=== PATIENT | female | born 1955 | race Caucasian/White ===

== ENCOUNTER 2018-04-24 22:30 | Inpatient (IN) ==
[2018-04-25 01:24] LABS: URINE SOURCE CATH
[2018-04-25 01:28] LABS: BILIRUBIN URINE NEGATIVE (NEGATIVE); BLOOD URINE SMALL (NEGATIVE); COLOR YELLOW; GLUCOSE URINE NEGATIVE (NEGATIVE); KETONE URINE 10 mg/dL (NEGATIVE); LEUKOCYTES URINE NEGATIVE (NEGATIVE); NITRITE URINE NEGATIVE (NEGATIVE); PH URINE 6.5; PROTEIN URINE 300 mg/dL (NEGATIVE); TURBIDITY URINE CLEAR (CLEAR); UR EPITHELIAL CELLS <10 /HPF (<10); URINE BACTERIA NEGATIVE /HPF; URINE RBC <10 /HPF (<10); URINE WBC <10 /HPF (<10); UROBILINOGEN URINE NORMAL (NORMAL)
[2018-04-25] MEDS ORDERED: ZOFRAN IV ONE (01:35)
[2018-04-25] MEDS ORDERED: EPINEPHRINE SYRINGE IV ONE (01:40)
[2018-04-25] MEDS ORDERED: AMIDATE ONE (01:49)
[2018-04-25] MEDS ORDERED: QUELICIN ONE (01:49)
[2018-04-25] MEDS ORDERED: NORCURON ONE (01:54)
[2018-04-25] MEDS ORDERED: AMIDATE IV ONE (02:04)
[2018-04-25] MEDS ORDERED: NORCURON IV ONE (02:04)
[2018-04-25] MEDS ORDERED: DIPRIVAN 1% 1,000 MG/100 ML BOTTLE ONE (02:08)
[2018-04-25] MEDS: DIPRIVAN 1% 1,000 MG/100 ML BOTTLE IV SCH ×9 (02:11→21:56)
[2018-04-25 02:12] LABS: BASO# 0.29 X1000 (0.0-0.2); BASO% 1.6 % (0.0-0.8); EOS# 0.15 X1000 (0.0-0.7); EOS% 0.8 % (0.0-10.0); HEMATOCRIT 36.1 % (37.0-47.0); HEMOGLOBIN 11.3 g/dL (12.0-16.0); IMM GRAN# 0.57 X1000 (0.0-0.04); IMM GRAN% 3.1 % (0.0-0.5); LYMPH# 7.36 X1000 (1.2-3.4); LYMPH% 40.6 % (20.5-51.1); MCH 29.4 PG (27-31); MCHC 31.3 g/dL (33-37); MONO# 0.81 X1000 (0.11-0.59); MONO% 4.5 % (1.7-9.3); MPV 10.5 FL (7.4-10.4); NEUT# 8.95 X1000 (1.4-6.5); NEUT% 49.4 % (42.2-75.2); PLT 218 X1000 (130-400); RBC 3.84 XMIL (4.2-5.4); RDW 13.4 % (11.5-14.5); WBC 18.13 X1000 (4.8-10.8)
[2018-04-25 02:28] LABS: ALB/GLOB RATIO 0.8; CALCIUM 7.9 mg/dL (8.8-10.2); CREATININE 1.1 mg/dL (0.5-0.9); POTASSIUM 4.6 mmol/L (3.5-5.1); TOTAL BILIRUBIN 0.74 mg/dL (0.20-1.00)
[2018-04-25] MEDS ORDERED: ZOSYN 3.375 GM in NS 50 ML IV ONE (03:01)
--- NOTE | 2018-04-25 04:27 | PROVIDER DOCUMENTATION ---
This chart was entered by Teresa Ariza Scribe, acting as scribe for Murali Miller MD. HPI-General Adult - General Chief Complaint: For Procedure Stated Complaint: Transfer for CT Time Seen by Provider: 04/24/18 22:52 Source: patient Allergies/Adverse Reactions: Patient Allergies Allergy/AdvReac Type Severity Reaction Status Date / Time No Known Allergies Allergy Verified 04/24/18 23:00 - History of Present Illness -Gen Adult Nature of Presenting Problems: Pt presnts to ED VIA EMS transfer from [facility]. PT was pt in ER there, but they could not complete CT because of her weight. She originally came to the ED because of AMS. Location of Pain/Injury: reports: generalized Timing: reports: still present Context/Activities at Onset: reports: none Modifying Factors: improves with: nothing Associated Symptoms: reports: denies symptoms Review of Systems - Adult - REVIEW OF SYSTEMS - ADULT ROS:: ROS per family Constitutional: denies: chills, fever Eyes: reports: no symptoms reported Ears, Nose, Mouth & Throat: reports: no symptoms reported Cardiovascular: reports: no symptoms reported Respiratory: reports: no symptoms reported Gastrointestinal: reports: no symptoms reported Genitourinary: reports: no symptoms reported Musculoskeletal: reports: back pain Integumentary: reports: no symptoms reported Neurological: reports: no symptoms reported. denies: dizziness/vertigo, headache/migraines Psychiatric: reports: other (AMS) Endocrine: reports: no symptoms reported Hematologic/Lymphatic: reports: no symptoms reported Allergic/Immunologic: reports: no symptoms reported All Other Systems: Reviewed and Negative Past History - Adult - PAST MEDICAL HISTORY-ADULT Review of Records: reports: Old Records Reviewed, Nursing Assessment Review, Medications Reviewed, Social history reviewed & non-contributory. - SOCIAL HISTORY Smoking: denies, non-smoker Substance Use: none/never Alcohol Use Frequency: never Living Situation: family Physical Exam-General - CONSTITUTIONAL General Appearance: no apparent distress, obese (morbidly obese), other (Pt was not very vocal during exam, stated that she had to use the bathroom and asked about ice, but otherwise was not inclusive in the conversation in the room at time of exam.) - EYES Eyes: PERRL/EOMI - HEAD, EARS, NOSE, MOUTH & THROAT HENMT: TMs normal, other (Lips very dry and peeling) - NECK Neck: non-tender, full range of motion, supple - RESPIRATORY Respiratory: lungs clear, normal breath sounds - CARDIOVASCULAR Cardiovascular: regular rate, rhythm - GASTROINTESTINAL (ABDOMEN) Abdominal Exam: normal bowel sounds, non tender, soft - LYMPHATIC Lymphatic: no adenopathy - SKIN Integumentary: normal color, warm/dry, other (draining wound in bellybutton) - NEUROLOGIC Neurologic: other (confused) - PSYCHIATRIC Psych/Mental Status: other (pt is confused during exam) Progress - PLAN OF CARE/RESULTS Progress/Plan/Lab Results: Vital Signs - 8 hr 04/24/18 22:40 04/24/18 22:45 04/24/18 22:47 Temperature 97.7 F Pulse Rate 90 Respiratory Rate 16 Blood Pressure 199/152 199/152 O2 Sat by Pulse Oximetry 100 100 100 04/24/18 22:50 04/24/18 23:00 04/24/18 23:10 Temperature Pulse Rate Respiratory Rate Blood Pressure O2 Sat by Pulse Oximetry 100 100 100 04/24/18 23:20 04/24/18 23:30 04/24/18 23:40 Temperature Pulse Rate Respiratory Rate Blood Pressure O2 Sat by Pulse Oximetry 100 100 99 04/25/18 00:16 04/25/18 00:17 Temperature Pulse Rate Respiratory Rate Blood Pressure 189/118 O2 Sat by Pulse Oximetry 100 100 Orders Category Date Time Status Hernandez Cath Insertion ORDERED Care 04/24/18 23:[address] HEAD W/O CONTRAST [CT] Stat Exams 04/24/18 23:20 Taken cxr [CHEST-1 VIEW] [RAD] Stat Exams 04/24/18 23:40 Taken BLOOD CULTURE [BLDCUL] Stat Lab 04/24/18 23:38 Ordered CBC WITH ELECTRONIC DIFF [HEME] Stat Lab 04/25/18 00:18 Ordered CMP [COMPREHENSIVE METABOLIC PANEL] [CHEM] Stat Lab 04/25/18 00:18 Ordered FREE T4 Stat Lab 04/25/18 00:18 Ordered LACTATE, PLASMA [CHEM] Stat Lab 04/25/18 00:18 Ordered LIPASE [CHEM] Stat Lab 04/25/18 00:18 Ordered TROPONIN T Stat Lab 04/25/18 00:18 Ordered TSH Stat Lab 04/24/18 23:38 Ordered UA [URINALYSIS] [URINALYSIS] Stat Lab 04/24/18 23:39 Uncollected URINE CULTURE [RM] Stat Lab 04/24/18 23:41 Uncollected Result Diagrams: 04/25/18 02:09 04/25/18 02:10 Departure - Departure Date of Disposition Decision: 04/25/18 Time of Disposition Decision: 04:26 DIAGNOSIS: Altered mental status Qualifiers: Altered mental status type: unspecified Qualified Code(s): R41.82 - Altered mental status, unspecified Disposition: ADMITTED INPATIENT 09 Certified Medical Emergency: Emergent Condition: Critical - Critical Care Note This patient required my direct & personal management of CC.: Yes Attestation - Physician/ LESLEY Attestation Patient care was provided by Advanced Practice Provider:: No The physician spent face to face time with patient:: Yes Advanced Practice Provider documentation review:: Supervising physician onsite and consulted in the evaluation and care of this patient. The physician did have a face to face encounter with the patient. This chart was documented by the indicated scribe, (Teresa Ariza, Scribe) and accurately reflects the services I performed and decisions made by me, Murali Miller MD, as attested by the provider's signature.
[2018-04-25 04:31] LABS: ALLEN TEST YES; BE -0.6 mmoll (-3.0-3.0); BLOOD TYPE ARTERIAL; HCO3-(ACT) 24.5 mmoll (20.0-26.0); METHB 1.9 % (0.0-1.5); O2(CT) 13.3 mL/dL (15.0-23.0); O2HB 95.9 % (95.0-99.0); PCO2(98.6) 44 mmHg (35-45); PO2(98.6) 301 mmHg (60-100); SAMPLE BLOOD; SAO2 100.2 % (95.0-100.0); SRATE 16 BPM; THB 9.3 g/dL (11.5-17.4); TVOL 500 mL; pH(98.6) 7.36 (7.35-7.45)
[2018-04-25 04:51] LABS: MODALITY VENTILATOR
[2018-04-25] MEDS ORDERED: LEVOPHED 8 MG in D5 1/2 NS 250 ML IV SCH (05:30)
--- NOTE | 2018-04-25 05:49 | Diag Imaging Result Doc PS360 ---
CT HEAD W/O CONTRAST - 04/24/2018 INDICATION: ams COMPARISON: None FINDINGS: There are areas of old encephalomalacia at the right parietal-occipital lobes. There is also some hypodensity in the posterior left occipital lobe. There is an old lacunar in the nitin. There is mild diffuse atrophy. No intracranial mass or hemorrhage. The skull is intact. The sinuses are clear. IMPRESSION: No acute process. This exam was performed using automated exposure control, adjustment of mA or kV according to patient size, and/or use of iterative reconstruction technique Electronically signed by Inderjit Villafana 04/25/2018 5:46 AM
[2018-04-25] MEDS ORDERED: TYLENOL PR PRN (06:17)
[2018-04-25] MEDS ORDERED: VANCOMYCIN IV PER PHARMACY MISC SCH (06:30)
[2018-04-25] MEDS ORDERED: NS 1,000 ML IV SCH (06:30)
--- NOTE | 2018-04-25 06:59 | Diag Imaging Result Doc PS360 ---
EXAM: CHEST-PORTABLE 04/25/2018 HISTORY: tube placement TECHNIQUE: AP portable at 0 to 34 hours COMMENT: There is an endotracheal tube with its tip in the thoracic inlet. There is perihilar opacity bilaterally which has worsened since 04/25/2018. IMPRESSION: Worsening pulmonary edema. Electronically signed by Suresh Larkin 04/25/2018 6:57 AM
[2018-04-25] MEDS ORDERED: EPINEPHRINE SYRINGE ONE (07:00)
[2018-04-25] MEDS ORDERED: CALCIUM CHLORIDE ONE (07:00)
[2018-04-25] MEDS: PROTONIX IV SCH ×3 (07:02→17:32)
[2018-04-25] MEDS: SODIUM CHLORIDE 0.9% INJ SCH (07:02)
--- NOTE | 2018-04-25 07:10 | Diag Imaging Result Doc PS360 ---
EXAM: CHEST-1 VIEW 04/24/2018 HISTORY: ams TECHNIQUE: AP portable at 0009 on 04/25/2018. COMMENT: There is cardiomegaly and increased pulmonary vascularity. There are no previous studies available for comparison. There is interstitial pulmonary edema. The left base is not entirely included on the image. IMPRESSION: Pulmonary edema. Electronically signed by Suresh Larkin 04/25/2018 7:08 AM
--- NOTE | 2018-04-25 07:27 | EKG Report ---
Test Performed on : 04/25/2018 05:11:27 AM Test Reason : Cardiopulmonary Arrest Blood Pressure : / mmHG Vent. Rate : 084 BPM Atrial Rate : 084 BPM P-R Int : 142 ms QRS Dur : 080 ms QT Int : 502 ms P-R-T Axes : 063 062 032 degrees QTc Int : 593 ms Normal sinus rhythm. Low voltage QRS Possible Inferior infarct , age undetermined Possible Anterolateral infarct , age undetermined Prolonged QT Abnormal ECG No previous ECGs available Confirmed by Hernandez Ochoa MD ([id number]) on 04/25/2018 9:22:40 AM
--- NOTE | 2018-04-25 07:27 | EKG Report ---
Test Performed on : 04/25/2018 07:19:01 AM Test Reason : Cardiac Arrest Blood Pressure : / mmHG Vent. Rate : 087 BPM Atrial Rate : 087 BPM P-R Int : 146 ms QRS Dur : 080 ms QT Int : 496 ms P-R-T Axes : 068 069 055 degrees QTc Int : 596 ms Normal sinus rhythm. Cannot rule out Inferior infarct (cited on or before 25-APR-2018) Cannot rule out Anterior infarct (cited on or before 25-APR-2018) Prolonged QT Abnormal ECG When compared with ECG of 25-APR-2018 05:11, (Unconfirmed) No significant change was found Confirmed by Gabriela BURNS, Hernandez Simmons ([id number]) on 04/25/2018 9:22:50 AM
[2018-04-25 07:59] LABS: INR 1.37; PROTIME 17.9 Seconds (11.0-16.0)
[2018-04-25 08:00] LABS: PTT 38.5 Seconds (22.3-41.8)
[2018-04-25] MEDS ORDERED: NS 250 ML ONE (08:13)
[2018-04-25] MEDS ORDERED: LASIX IV ONE (08:25)
[2018-04-25 08:29] LABS: CALCIUM 7.8 mg/dL (8.8-10.2); CREATININE 1.2 mg/dL (0.5-0.9); MAGNESIUM 1.2 mg/dL (1.5-2.7); POTASSIUM 4.2 mmol/L (3.5-5.1)
[2018-04-25] MEDS ORDERED: VANCOMYCIN 2.5 GM in NS 500 ML IV ONE (09:00)
[2018-04-25] MEDS ORDERED: MAGNESIUM SULFATE 2 GM/S.W.I. 2 GM/50 ML IVPB IV ONE (09:30)
--- NOTE | 2018-04-25 10:18 | CARDIOLOGY CONSULTATION ---
DATE: 04/25/2018 CHIEF COMPLAINT ON PRESENTATION: She apparently presented to [facility] with altered mental status and was transferred over to [facility] for evaluation of altered mental status. HISTORY OF PRESENT ILLNESS: Ms. Salomon is a 62-year-old female. She has a history, by chart review, of hypertension and hypothyroidism. She is a morbidly obese female who was bed-bound. She is not able to provide any history. She was apparently intubated last night for PEA arrest. I do not have any data on this PEA arrest. I do not have any notes from the ER to review regarding this arrest. The patient was apparently a recent admit to [facility], who was treated for some abdominal wall cellulitis. She has large pannus on the right side for which she apparently was treated with IV and oral antibiotics. She was complaining of headache at home per family and they brought her into the ER for further evaluation. During the transfer to the ER and [facility], she became very altered. No other history is available. PAST MEDICAL HISTORY: Again per chart review, this appears to be consistent with: 1. Hypertension. 2. Severe, profound morbid obesity in which the patient is bed-bound. SOCIAL HISTORY: She is a bed-bound white female. She lives at home with family. REVIEW OF SYSTEMS: Unable to be obtained secondary to the patient being intubated. FAMILY HISTORY: Unable to be obtained secondary to the patient being intubated. PHYSICAL EXAMINATION: Vital Signs: She is afebrile here. Her heart rates appear to be in predominantly the 80s. Her blood pressure is 108/70. On presentation to our hospital, her blood pressure was 199/152. General: She is in no acute distress. She is sedated on the ventilator. She is morbidly obese. HEENT: Oropharynx is moist. She has poor dentition. Eye examination shows pink conjunctivae and white sclerae. Neck: Examination shows no obvious thyromegaly or thyroid tenderness. Cardiovascular: She sounds to be in a regular rate and rhythm. She has very distant heart sounds. She has mildly cool distal extremities to palpation. She has no obvious edema, but she has significant obesity in those limbs. Chest: Mechanical breath sounds bilaterally. No increased work of breathing. Abdomen: No obvious organomegaly, but significantly limited by the patient's body habitus. She does have some edematous areas in her pannus on the right, but no obvious erythema. Skin: Again, edematous, indurated pannus on the right with some mild abrasions, but no obvious erythema and no obvious draining lesions. Neurologic and Psychiatric: Exams unable to be performed secondary to the patient's current intubated status. PERTINENT DATA: EKG reviewed by me on 04/25/2018 at 7:19 showed sinus rhythm. No clear evidence of ischemic changes or injury pattern. EKG on 04/25/2018 at 5:11 showed sinus rhythm. No acute ischemic changes or evidence of injury pattern. Chest x-ray shows suggestion of pulmonary edema. Head CT shows no acute process. There is an old lacunar infarct in the nitin. Hypodensity in the posterior left occipital lobe with old encephalomalacia at the right parietal occipital lobe. Lab data shows white count 18, hematocrit 36, platelet count of 218,000. INR is 1.37. ABG shows a pH of 7.36, pCO2 of 44, PO2 of 301. Lactate was 1.9; that is on an FiO2 of 80%. Sodium is 139, potassium 4.2, BUN 8, creatinine 1.2. Mag level is 1.2. ProBNP is 32,000. Albumin level is 3. Lactate on this study was 2.6. Protein level 300. ASSESSMENT: Ms. Salomon is a 62-year-old female who presented with altered mental status. She subsequently had what sounds like a pulseless electrical activity event, but I do not have any telemetry data or any code data to support this. She was intubated in the emergency room. PLAN: At this point, we will check an echo. Further recommendations to come after the results of the echo are reviewed. Her white count is certainly elevated and with the recent hospitalization, there must be concern for occult infection. Her proBNP is significantly elevated. Her enzymes do not appear to be elevated. I do not think that this is acute coronary syndrome based on the history. I will replete the magnesium, if this has not been done, as it is significantly low. I agree with the Lasix dosing as she is currently on. We will follow up with an echocardiogram. cc: Bo Rose MD
[2018-04-25] MEDS: ZOSYN 3.375 GM in NS 50 ML IV SCH ×2 (11:07→17:28)
--- NOTE | 2018-04-25 11:15 | HISTORY AND PHYSICAL ---
PRIMARY CARE PHYSICIAN: JOEY Franklin, in [place], [place] CHIEF COMPLAINT: Altered mental status. HISTORY OF PRESENT ILLNESS: Ms. Salomon is a 62-year-old female who presented to our ER as an ER to ER transfer from [facility]. From what the patient's daughter and explained is that the patient recently was discharged from [facility] in [place], [place], on 04/21/2018. They stated that she was admitted there for treatment of cellulitis of her right abdomen. From her recent medication reconciliation, it looks as though she was discharged with antibiotics of clindamycin. The patient's daughter states that yesterday morning on 04/24/2018 that the patient was noted to be of normal mentation, though she did begin to have increasing confusion, difficulty with speech and articulating her words and some right- sided weakness and drawing of her right hand throughout the day. Though they stated the patient did not complain of shortness of breath. They did state at times it did look as though she was having difficulty breathing. This was her chief complaint that was documented in the ER at [facility]. Though they did report that she complained of symptoms of a headache and nausea. She did have a brief period where she stated that she did have some chest pain, though from what I understand, this had resolved prior to her arrival to the ER at [facility]. They had reported that she had been having frequent diarrhea as well, though she denied any abdominal pain. They had reported that she has had some low back pain. They denied her having any known fever, body aches or chills. They denied her having any known cough. There was no known vomiting prior to arrival to the ER. They state that she does have chronic swelling in her bilateral lower extremities and that she takes Lasix p.r.n. for this. The daughter also did report that recently the patient's grandson had been diagnosed with the flu and that he does have close contact with the patient, and due to this, they had written her a prescription for Tamiflu on 04/24/2018. According to the ER note, the ER physician at [facility] did contact our physician in the ER for transfer due to the patient's weight. A CT scan of the head was unable to be performed at their facility, and she was transferred here for this to be completed. Though while in the ER, the patient's daughter states that the patient did begin to vomit. They did call for the nurse, though shortly after this, she said the patient sat up in the bed and did grab at her chest and then became unresponsive. They did call for the nurses who went into the room to check the patient and found the patient in cardiopulmonary arrest. They did immediately begin chest compressions. ACLS protocol was initiated. She was given a total of 3 doses of epinephrine IV. It was reported that she was in PEA on the monitor. The patient did have return of ROSC, and she was intubated by the ER physician. The patient did have some leukocytosis noted with a white blood cell count of 18,930. Chest x-ray did look as though she could have some possible pulmonary edema as well as she may likely have some aspiration pneumonia. The patient will be placed inpatient for admission to the ICU. Also, I would like to note that the daughter did report that she has had a recent diagnosis of sarcoidosis. They also noted that the patient is bedbound and secondary to this has not seen a pulmonary or pulmonary specialist in a few years. [facility] does come out to care for the patient frequently. REVIEW OF SYSTEMS: Unfortunately, review of systems was unable to be completed with the patient due to her current condition and mentation. Please see above HPI for reported symptoms by family. PAST MEDICAL HISTORY: 1. Congestive heart failure. 2. Hypertension. 3. Hyperlipidemia. 4. Diabetes mellitus type 2. 5. Gastroesophageal reflux disease. 6. Chronic kidney disease. 7. Hypothyroidism. 8. Recent diagnosis of sarcoidosis. 9. History of uterine cancer. 10.Iron deficiency anemia. 11.Kidney stones. 12.Questionable history of colitis/diverticulitis. 13.Frequent urinary tract infections. 14.Asthma. 15.COPD. 16.Reported history of an IVC filter placement prior to having bariatric surgery for which the patient ultimately decided not to have. The family reports this filter was placed at a hospital in [place], [place] many years ago. 17.Recent diagnosis and treatment of cellulitis of her right abdomen in [facility] in [place], [place]. PAST SURGICAL HISTORY: 1. Hysterectomy. 2. section. 3. Cholecystectomy. 4. IVC filter placement. 5. Cataract surgery. 6. Lung biopsy. SOCIAL HISTORY: There is no known history of tobacco, alcohol or illicit drug use. The patient's daughter states that she is bed bound. She does have [facility] that comes out to her house to care for her. FAMILY HISTORY: Positive for her father having a history of heart disease, CABG, and aortic aneurysm. Her mother had a history of aortic aneurysm and stroke. Her brother had a history of having a CABG in his 30s. She does have a niece who was diagnosed with colon cancer in her 30s. ALLERGIES: The patient has reported allergies to Keflex and Lyrica. HOME MEDICATIONS: 1. Coreg 25 mg p.o. b.i.d. 2. Cetirizine 10 mg p.o. daily. 3. Celexa 40 mg p.o. nightly at bedtime. 4. Clindamycin 150 mg capsule b.i.d. 5. Vitamin D2 one capsule p.o. as directed once a week. 6. Ferrous sulfate 325 mg p.o. b.i.d. 7. Fluconazole 100 mg tablet p.o. daily. 8. Levothyroxine 175 mcg tablet p.o. q.a.m. 9. Lorazepam 0.5 mg p.o. t.i.d. 10.Singulair 10 mg tablet p.o. nightly at bedtime. 11.Zofran 4 mg tablet p.o. q.6 hours p.r.n. for nausea. 12.Tamiflu 75 mg p.o. b.i.d. 13.Protonix 40 mg p.o. daily. DIAGNOSTIC DATA: White blood cell count is 18,130, hemoglobin 11.3, hematocrit 36.1, platelet count is 218. PT is 17.9. INR is 1.37. PTT is 38.5. Sodium is 137, potassium 4.6, chloride 102, serum bicarb is 22, BUN is 2, creatinine 1.1, GFR is 51, glucose 80, though recheck fingerstick glucose is 113. Calcium is 7.9. Liver function tests were within normal limits except for AST slightly elevated at 45 and alkaline phosphatase of 135. Troponin is 0.024. Lipase 35. Urinalysis was obtained via catheter and was positive for protein, ketones and blood though was negative for nitrites, leukocytes, white blood cells or bacteria. Arterial blood gases were obtained on FiO2 of 80% on mechanical ventilator with a pH of 7.36, pCO2 of 44, pO2 of 301, HCO3 of 24.5 with a base excess of negative 0.6, an O2 saturation of 100.2. EKG showed normal sinus rhythm and prolonged QT with a rate of 84 and a QTC of 593. Chest x-ray does appear to have some possible pulmonary edema, though we are awaiting official Radiology overread. CT of the head showed no acute intracranial abnormalities. There were areas of old encephalomalacia at the right parieto-occipital lobes, and there was also some hypodensity in the posterior left occipital lobe. There was also an old lacunar in the nitin and mild diffuse atrophy. PHYSICAL EXAMINATION: VITAL SIGNS: Heart rate is 87, respirations 20, blood pressure 136/80, oxygen saturation was 98% on mechanical ventilator. GENERAL: Ms. Salomon is a 62-year-old obese female. She is resting on the ER stretcher. She was not in any acute distress. She is intubated and does have sedation of propofol onboard. HEENT: Head is atraumatic and normocephalic. The patient does spontaneously open her eyes and responds to stimulation and pain. Oral mucosa is slightly dry. There is an ET tube noted. NECK: Supple. Trachea midline. No carotid bruits noted on auscultation. CARDIOVASCULAR: The patient has S1 and S2 present, though heart sounds were slightly difficult to auscultate. This is likely secondary to body habitus. There were no murmurs, gallops or rubs appreciated. PULMONARY: The patient has symmetrical chest expansion bilaterally. Lung sounds in bilateral full young did have rhonchi and crackles noted. ABDOMEN: Soft. It does not appear to be distended, but the patient does have protuberant abdomen noted. Bowel sounds were present in all 4 quadrants and were normoactive. She did not have any facial grimacing or guarding noted upon palpation. GENITOURINARY: The patient does have a Hernandez catheter in placed at this time and does have clear yellow drainage noted in Hernandez catheter bag. EXTREMITIES: The patient does have some swelling noted in bilateral lower extremities and bilateral upper extremities in her forearms, wrists and hands. Radial pulses and pedal pulses were 2+ bilaterally. Capillary refill is 3 seconds in all extremities. INTEGUMENTARY: The patient's skin is pink, warm and dry, though she does have some abraded skin noted to her umbilical area for which the patient's daughter states that the patient does pick at frequently. She also does have some areas of erythema in her intertriginous areas. NEUROLOGICAL: The patient does open her eyes spontaneously and in response to pain of stimulation, though I have not seen her move any of her extremities voluntarily. Unfortunately at this time, a full neurological exam is limited due to her current condition and mentation and the fact that she has received sedation. ASSESSMENT AND PLAN: 1. Cardiopulmonary arrest. At this time, the exact cause of her cardiopulmonary arrest is uncertain. For further evaluation, we will continue with orders of echocardiogram. We will do a series of cardiac enzymes. We have placed order for a ProBNP and repeat chemistries with a magnesium this morning. The patient will remain on mechanical ventilator given reports that she vomited and possibly aspirated just prior to her pulmonary arrest. We have also covered her possible aspiration pneumonia. We have placed consults with Cardiology and Pulmonology. The patient has been placed in the ICU for close monitoring. She will have vital signs per ICU protocol. We will do strict intake and output, q.4 hour fingerstick blood sugars. We will continue to follow her condition closely. 2. Possible aspiration pneumonia. We will place the patient with antibiotic coverage of vancomycin and Zosyn. Sputum culture and blood cultures have been placed. 3. Encephalopathy. This is also of uncertain etiology. The patient was reported to have some worsening confusion with right-sided weakness and drawing of her right hand. She was also reported to have had difficulty with speech and articulating her words. Initial CT of the head without contrast was negative. For further evaluation and possible CVA, we have ordered carotid ultrasound and possibly will repeat CT of the head at a later time or possible MRI of the brain. We will continue to follow her neurological status closely. 4. Possible cerebrovascular accident. We will continue the treatment mentioned above for number 3. 5. Diarrhea. For further evaluation of this, we have ordered stools studies. We will await those results and continue to follow. 6. Resuscitation status. I did speak with the patient's and her daughter, and they do wish her to remain a full code at this time. They do want to continue with intubation, chest compressions, emergency cardiac medications and defibrillation if needed. An order for full code has been placed on the chart. The patient has been placed in the ICU for close monitoring. She will be n.p.o. at this time. She will be on strict bedrest. The patient does have poor IV access at this time with 2 small 22- gauge IVs bilaterally. We have placed a request for a PICC line consult this morning as well. Further orders and recommendations pending hospital course, diagnostic studies and physician evaluation. Critical care time with this patient was approximately 70 minutes. Dictated by JOEY Whelan for Ajit Goldsmith MD cc: Ajit Goldsmith MD
[2018-04-25] MEDS: LOVENOX SUBQ SCH (11:54)
[2018-04-25 12:50] LABS: CK-MB 5.51 ng/mL (0.0-5.0)
[2018-04-25] MEDS: DUONEB (A & A) INH SCH ×3 (15:43→23:25)
--- NOTE | 2018-04-25 15:58 | PULMONOLOGY CONSULTATION ---
DATE: 04/25/2018 HISTORY OF PRESENT ILLNESS: Ms Salomon is a morbidly obese white female with a body mass index of greater than 75, who is having difficulty with fluctuating mental status over the last week. The patient was taken to [facility] [place] [facility] emergency room with shortness of breath and change in mental status. That facility did not have a CT scan that will allow evaluation of the brain. Attempts to transfer patient to [facility] were unsuccessful and patient was subsequently transferred to [facility]. While in the ER, the patient had an episode of emesis followed by a cardiopulmonary arrest. Details of the arrest are not known but she did require epinephrine and the family reports they visualized CPR. Attempts are in progress to locate the code sheet. The patient was resuscitated and transferred to the ICU. PAST MEDICAL HISTORY: 1. Morbid obesity. The patient has been bedbound for the last 7 years. The patient was being evaluated for bypass surgery and canceled the surgery due to anxiety/fear of the surgery. 2. Obstructive sleep apnea. Multiple attempts to make BiPAP tolerable including nasal pillows and full mask were tried without success and the patient has not worn a CPAP device or BiPAP device recently. 3. Sarcoidosis with apparent mediastinoscopy. This was several years ago. 4. Cataract left eye with visual loss. 5. History of IVC filter placement in anticipation of bariatric surgery. 6. History of uterine cancer with hysterectomy greater than 10 years ago. 7. Status post cholecystectomy. 8. Status post bilateral ankle fractures. 9. Recent admission to an outside hospital with cellulitis of the abdomen/pannus. 10. Chronic kidney disease. 11. History of depression. SOCIAL HISTORY: No tobacco or alcohol use listed. FAMILY HISTORY: Notable for premature deaths associated with malignancy and heart disease. REVIEW OF SYSTEMS: Cannot be obtained. PHYSICAL EXAMINATION: General: Reveals an obese, white female on mechanical ventilation. She currently appears to be tolerating the current ventilator settings. She currently is on FiO2 of 30%, blood pressure 124/63, heart rate 79, respiratory rate 18, oxygen saturation 100%. HEENT: Right pupil is reactive to light. Left pupil is cloudy. Oropharynx appears clear but dry. Neck: Supple. Chest: Reveals occasional rhonchi bilaterally. Cardiac: S1-S2. Abdomen: Obese and soft. Extremities: Reveal increased adiposity. Skin: Reveals some superficial breakdown with erythema on the abdomen, abdominal wall and pannus. LABORATORIES: White blood count 18.1, hemoglobin 11.3, platelet count 218,000. Sodium 139, potassium 4.2, chloride 101, bicarbonate 19, anion gap 19, BUN 8, creatinine 1.1. ProBNP 32,722. White blood count 18.13, hemoglobin 11.3, platelet count 218,000. Urinalysis reveals a small amount of blood but no white blood cells. Nitrates negative. CT scan of the brain reveals evidence of prior stroke which family was not of aware of with encephalomalacia involving the right parietal and occipital lobes with some posterior hypodensity in the left occipital lobe and an old lacunar infarct in the nitin. There is diffuse atrophy. No evidence of acute disease. IMPRESSION: 62-year-old with multiple medical problems outlined above who has morbid obesity, altered mental status, acute hypoxemic respiratory failure, chronic hypercapnic respiratory failure, cor pulmonale, cellulitis, altered mental status, status post cardiopulmonary arrest. Prognosis will depend on the down time. RECOMMENDATION: 1. Continue full ventilatory support. We will continue to titrate FiO2 down to prevent oxygen toxicity to recently injured brain. 2. Agree with current antibiotic regimen, which should cover aspiration if she has a significant aspiration event. 3. Correct abnormal electrolytes. 4. Routine bronchial hygiene. 5. Complete ER database. cc: Agus Toscano MD
--- NOTE | 2018-04-25 18:19 | ECHO REPORT ---
ORDER DATE: 04/25/2018 INTERPRETING PHYSICIAN: Dr. Oscar REQUESTING PHYSICIAN: CLINICAL INDICATIONS: This is a 70-year-old female status post cardiac arrest, CHF, morbidly obese, weighs 436 pounds. M-MODE MEASUREMENTS: Right ventricle: cm. Left ventricle end diastole: 5.3 cm. Left ventricle end systole: 4.7 cm. Posterior wall: Appears to be 1.3 cm. Interventricular septum: 1.0 cm. Left atrium: 4.4 cm. Aortic root: 2.9 cm. SUMMARY OF 2-DIMENSIONAL IMAGIN. This study is very limited. The acoustic windows are terrible. The patient was given Definity IV to optimize visualization of endocardium. 2. The left ventricle shows good contractility of the basal segments, and the apical segments appear to be akinetic to dyskinetic. The mid to apical inferior, the mid to apical anterior, and the distal anteroseptal segment appear to be akinetic to dyskinetic. This could be a case of stress related cardiomyopathy or takotsubo cardiomyopathy. 3. Ejection fraction grossly estimated at 25% to 30%. This is just a very gross estimation. 4. Aortic valve appears to be grossly normal. 5. Mitral valve also appears to be grossly normal. 6. Pulse wave Doppler of mitral inflow shows fusion of the E and the A waves. 7. Tricuspid valve shows mild to moderate degree of regurgitation. 8. Pulmonary systolic pressure appears to be elevated, grossly estimated at 75 mmHg. 9. Pulmonic valve is not well seen; however, the Doppler signal appears to be grossly normal. 10.No pericardial effusion is noted. Clinical correlation is recommended. Consider performing a transesophageal echocardiogram if clinically indicated. cc: Garrett Oscar MD [facility]
[2018-04-25 19:27] LABS: CK INDEX 2.9 (0.0-2.5); CK-MB 8.33 ng/mL (0.0-5.0)
[2018-04-25] MEDS: LASIX IV SCH (21:19)
[2018-04-26] MEDS: DIPRIVAN 1% 1,000 MG/100 ML BOTTLE IV SCH ×10 (00:08→22:28)
[2018-04-26] MEDS: ZOSYN 3.375 GM in NS 50 ML IV SCH ×4 (00:09→16:50)
[2018-04-26 01:31] LABS: CK INDEX 2.9 (0.0-2.5); CK-MB 12.65 ng/mL (0.0-5.0)
[2018-04-26] MEDS: VANCOMYCIN 2 GM in NS 500 ML IV SCH ×2 (03:09→21:21)
[2018-04-26] MEDS: DUONEB (A & A) INH SCH ×6 (03:28→23:45)
[2018-04-26] MEDS ORDERED: MAGNESIUM SULFATE 2 GM/S.W.I. 2 GM/50 ML IVPB IV ONE ×2 (03:53→10:09)
[2018-04-26 04:39] LABS: ALBUMIN 2.4 g/dL (3.5-5.0); CALCIUM 7.5 mg/dL (8.8-10.2); CREATININE 1.4 mg/dL (0.5-0.9); POTASSIUM 4.9 mmol/L (3.5-5.1); TOTAL BILIRUBIN 0.83 mg/dL (0.20-1.00); TOTAL PROTEIN 4.9 g/dL (6.3-8.3)
[2018-04-26 05:12] LABS: ALLEN TEST YES; BE -2.2 mmoll (-3.0-3.0); BLOOD TYPE ARTERIAL; HCO3-(ACT) 23.1 mmoll (20.0-26.0); METHB 0.9 % (0.0-1.5); O2(CT) 22.9 mL/dL (15.0-23.0); O2HB 94.5 % (95.0-99.0); PCO2(98.6) 34 mmHg (35-45); PO2(98.6) 92 mmHg (60-100); SAMPLE BLOOD; SRATE 16 BPM; THB 17.2 g/dL (11.5-17.4); TVOL 500 mL; pH(98.6) 7.41 (7.35-7.45)
[2018-04-26 05:14] LABS: MODALITY VENTILATOR
[2018-04-26] MEDS: PROTONIX IV SCH ×2 (05:33→18:19)
[2018-04-26] MEDS: LASIX IV SCH (08:26)
[2018-04-26 08:55] LABS: BASO# 0.05 X1000 (0.0-0.2); BASO% 0.6 % (0.0-0.8); EOS# 0.41 X1000 (0.0-0.7); EOS% 5.2 % (0.0-10.0); HEMATOCRIT 28.6 % (37.0-47.0); HEMOGLOBIN 9.1 g/dL (12.0-16.0); IMM GRAN# 0.04 X1000 (0.0-0.04); IMM GRAN% 0.5 % (0.0-0.5); LYMPH# 0.86 X1000 (1.2-3.4); LYMPH% 10.9 % (20.5-51.1); MCH 28.9 PG (27-31); MCHC 31.8 g/dL (33-37); MCV 90.8 FL (81-99); MONO# 0.36 X1000 (0.11-0.59); MONO% 4.6 % (1.7-9.3); MPV 11.3 FL (7.4-10.4); NEUT# 6.18 X1000 (1.4-6.5); NEUT% 78.2 % (42.2-75.2); PLT 145 X1000 (130-400); RBC 3.15 XMIL (4.2-5.4); RDW 13.8 % (11.5-14.5)
--- NOTE | 2018-04-26 09:05 | Diag Imaging Result Doc PS360 ---
CHEST-PORTABLE - 04/26/2018 INDICATION: respiratory failure COMPARISON: 04/25/2018 FINDINGS: Stable endotracheal tube at T4. Stable cardiomegaly and pulmonary vascular congestion. There has been some improvement in the right upper lobe atelectasis or infiltrate. Stable to slight worsening patchy infiltrates or atelectasis in the lung bases. IMPRESSION: Shifting atelectasis throughout the lungs with overall no significant change from prior. Electronically signed by Inderjit Villafana 04/26/2018 9:03 AM
[2018-04-26] MEDS ORDERED: SODIUM PHOSPHATE 30 MEQ in NS 250 ML IV ONE (10:09)
[2018-04-26] MEDS: LOVENOX SUBQ SCH (12:04)
--- NOTE | 2018-04-26 12:49 | Carotid Study ---
DATE: 04/25/2018 PROCEDURE: Bilateral duplex and color flow imaging of the carotid arteries performed using a [employer] Vivid E9 Ultrasound System with a 9L-D transducer. REFERRING PHYSICIAN: Dr. Goldsmith INTERPRETING PHYSICIAN: Cassia Jacques MD WOOD CUT ENGRAVER: Kylie Brink RVT INDICATIONS: CVA/stroke. OBSERVED DATA RIGHT LEFT Brachial Blood Pressure Carotid Pulse Bruits: Carotid/Sub DIAGRAM OF ULTRASOUND IMAGING R L RIGHT INT EXT INT EXT LEFT Chente (cm/s) Chente (cm/s) Subclavian 87/0 Subclavian 155/0 CCA Proximal 52/0 CCA Proximal 57/0 CCA Distal 49/5 CCA Distal 59/5 Bulb 48/11 Bulb 36/9 ICA Proximal 72/16 ICA Proximal 38/10 ICA Mid 69/13 ICA Mid 39/8 ICA Distal 70/11 ICA Distal 64/18 ECA 69/0 ECA 59/0 Vertebral 64/8 A Vertebral 47/7 A ICA/CCA Ratio 1.37 ICA/CCA Ratio 1.08 % Stenosis 0%-39% % Stenosis 0%-39% PHYSICIAN INTERPRETATION: This is a portable study. The patient is on the vent and morbidly obese. There appears to be mild atherosclerotic disease of the distal common and internal carotids bilaterally without evidence of a hemodynamically significant lesion in either carotid system. cc: Cassia Jacques MD
--- NOTE | 2018-04-26 13:29 | Diag Imaging Result Doc PS360 ---
CHEST/ABD TUBE PLACEMENT - 04/26/2018 12:51 PM INDICATION: ng tube placement COMPARISON: 5:05 AM FINDINGS: There is a nasogastric tube in good position in the stomach. IMPRESSION: Nasogastric tube in the stomach. Electronically signed by Inderjit Villafana 04/26/2018 1:26 PM
--- NOTE | 2018-04-26 14:29 | PROGRESS NOTE ---
DATE: 04/26/2018 SUBJECTIVE: This morning Ms. Salomon continues to be intubated. The daughter and were at the bedside at the time of the encounter. She was off sedation at the time. She seems to be engaging and she seems to be responding. OBJECTIVE: Vital signs: Blood pressure is 103/38, pulse is 84, respiration is 18, temperature is 96.9 degrees. General: Ms. Salomon is a 62-year-old morbidly obese, female. She is in bed, intubated and seems to be synchronizing well with the ventilator. HEENT: Mucosa is pink and moist. Anicteric. Acyanotic. Neck: Supple. There is some maceration around the neck; I think it is all due to the obesity. Chest: Air entry is bilaterally reduced. Some transmitted sounds from the ventilator. Cardiovascular: Regular rate and rhythm. Occasionally, there are some extrasystolic beats, but I did not hear any murmurs. No rubs. No gallops. Abdomen: Soft, distended. There are some ulcerations around the navel and there is a right panniculitis. Extremities: Trace pedal edema. MAGNETO REPAIRER: Patient is intubated. When she is off the sedation, she seems to move extremities. She will open her eyes to her name, and she seems to be tracking very well with both eyes. Both pupils are equal and they are reactive. There is a dense cataract on the left eye. The patient will move both extremities to painful stimulation. LABORATORY DATA: WBC is down to 7.90, hemoglobin is 9.1, platelet count of 145. Chemistry is also reviewed. Sodium is 136, potassium 4.9, chloride 98. Troponin is down to 0..88. CURRENT MEDICATIONS: Have all been reviewed. She continues to be on Zosyn and vancomycin. DIAGNOSTIC STUDIES: A chest x-ray this morning shows atelectasis throughout the lungs. Overall, no significant improvement. ASSESSMENT: 1. Status post cardiac arrest. Downtime is said to be around 10 minutes. Initial rhythm is not clearly stated. However, it appears that the patient was in PEA. From review of her electrocardiograms, it appears that the patient had prolonged QT prolongation on admission, and it also appears that she has been in and out ventricular tachycardia a couple times. Cardiology has been consulted. 2. Acute hypoxemic respiratory failure. Patient is currently intubated. Pulmonary Medicine is on board. 3. Suspected aspiration pneumonia. We will continue with the current antibiotic coverage. 4. Global encephalopathy. This was the main reason why patient actually presented to the emergency department. Unsure of the reason. The patient has a CT scan of the head which did show an old area of encephalomalacia on the right parietal occipital lobes, and there is also some old lacunar in the nitin with diffuse atrophy, but no acute process. 5. Morbid obesity. 6. Electrolyte abnormalities including hypomagnesemia and hypophosphatemia. Will replace all of these to maintain magnesium level above 2 and phosphorus above 3. 7. Congestive heart failure with ejection fraction of 25 to 30 percent with imaging suggestive of stress cardiomyopathy. The patient is on diuretic therapy and will continue further recommendations from Cardiology. PLAN: So, in general, Ms. Salomon was admitted to [facility] [place] for about 5 days because of panniculitis on the right abdominal wall. Was sent home on clindamycin and other medications. The history is that she has been getting progressively weak and confused, so she was sent back to [facility] [place] and, because she could not fit into the CT scan, she was brought over here. During the hospital course, she vomited and arrested. She is currently now intubated. She seems to be responding off the sedation, which is a good sign. So we will continue with critical care management for now including vent support, antibiotics, and replacement of all her electrolytes abnormalities and re-evaluate her with labs and imaging in the morning. I have explained in details the plan today with the , the daughter and another family friend. They all voiced understanding and were thankful. CRITICAL TIME SPENT: 45 minutes. cc: Narendra Hilliard MD [facility]
[2018-04-26 16:48] LABS: CALCIUM 7.4 mg/dL (8.8-10.2); CREATININE 1.7 mg/dL (0.5-0.9); PHOSPHORUS 3.2 mg/dL (2.7-4.5); POTASSIUM 3.1 mmol/L (3.5-5.1)
[2018-04-26] MEDS: POTASSIUM CHLORIDE 20 MEQ/SWI 20 MEQ/100 ML IVPB IV SCH ×2 (18:19→21:21)
[2018-04-26] MEDS: SODIUM CHLORIDE 0.9% INJ SCH (18:19)
[2018-04-27] MEDS: ZOSYN 3.375 GM in NS 50 ML IV SCH ×2 (00:21→05:09)
[2018-04-27] MEDS: DIPRIVAN 1% 1,000 MG/100 ML BOTTLE IV SCH ×9 (00:21→23:06)
--- NOTE | 2018-04-27 00:50 | PULMONOLOGY PROGRESS NOTE ---
DATE: 04/26/2018 SUBJECTIVE: Patient is poorly responsive. She is receiving some sedation. Interim history overnight is notable for several episodes of nonsustained ventricular tachycardia. OBJECTIVE: The patient has been afebrile over the last 24 hours. Blood pressure 103/38, heart rate 84, respiratory rate 18, oxygen saturation 100% on mechanical ventilation. HEENT: Right pupil appears reactive. Left pupil is cloudy. Oropharynx is clear. Neck: Is supple. Chest: Reveals relatively clear air entry bilaterally. Cardiac: S1-S2. Abdomen: Obese and soft . Extremities: Reveal increased adiposity making fluid detection difficult. LABORATORIES: Chest x-ray reveals atelectasis at the left base with some improvement in upper lobe atelectasis. White blood count 7.9, hemoglobin 9.1, platelet count 145,000 , sodium 136, potassium 4.9, chloride 98, bicarbonate 20, BUN 9, creatinine 1.4. Arterial blood gas reveals a pH 7.41, pCO2 of 34, PO2 of 92. Echocardiogram reveals EF 25 to 30 percent but extremely poor acoustic windows. Decreased ejection fraction may be due to Takotsubo cardiomyopathy, PA pressure estimated 75. IMPRESSION: 62-year-old with morbid obesity and a body mass index of 70, bed- bound status, status post cardiopulmonary arrest with acute hypoxemic and acute on chronic hypercapnic respiratory failure. The patient has probable chronic cor pulmonale. She is currently having episodes of nonsustained ventricular tachycardia. She has cardiomyopathy with possible Takotsubo cardiomyopathy. She has atelectasis at the left base. RECOMMENDATION: 1. Continue current ventilatory support. 2. Supplement magnesium given episodes of nonsustained ventricular tachycardia. 3. Will delay sedation vacation and weaning trial until tomorrow given frequent episodes of nonsustained tachycardia. 4. Follow sputum cultures. 5. Initiate tube feeds. 6. Prognosis is guarded. Time spent critical care: 30+ minutes cc: Agus Toscano MD [facility]
[2018-04-27] MEDS: DUONEB (A & A) INH SCH ×6 (03:30→23:25)
[2018-04-27 04:44] LABS: ALLEN TEST YES; BE -1.8 mmoll (-3.0-3.0); BLOOD TYPE ARTERIAL; HCO3-(ACT) 23.5 mmoll (20.0-26.0); METHB 1.3 % (0.0-1.5); O2(CT) 11.7 mL/dL (15.0-23.0); O2HB 96.3 % (95.0-99.0); PCO2(98.6) 38 mmHg (35-45); PO2(98.6) 113 mmHg (60-100); SAMPLE BLOOD; SAO2 99.5 % (95.0-100.0); SRATE 12 BPM; THB 8.5 g/dL (11.5-17.4); TVOL 700 mL; pH(98.6) 7.39 (7.35-7.45)
[2018-04-27 04:48] LABS: MODALITY VENTILATOR
[2018-04-27 05:10] LABS: BASO# 0.03 X1000 (0.0-0.2); BASO% 0.5 % (0.0-0.8); EOS# 0.33 X1000 (0.0-0.7); EOS% 5.9 % (0.0-10.0); HEMATOCRIT 27.7 % (37.0-47.0); HEMOGLOBIN 8.9 g/dL (12.0-16.0); IMM GRAN# 0.05 X1000 (0.0-0.04); IMM GRAN% 0.9 % (0.0-0.5); LYMPH# 0.85 X1000 (1.2-3.4); LYMPH% 15.2 % (20.5-51.1); MCH 28.8 PG (27-31); MCHC 32.1 g/dL (33-37); MCV 89.6 FL (81-99); MONO# 0.43 X1000 (0.11-0.59); MONO% 7.7 % (1.7-9.3); MPV 11.6 FL (7.4-10.4); NEUT% 69.8 % (42.2-75.2); PLT 125 X1000 (130-400); RBC 3.09 XMIL (4.2-5.4); RDW 13.9 % (11.5-14.5); WBC 5.59 X1000 (4.8-10.8)
[2018-04-27 05:19] LABS: MAGNESIUM 1.8 mg/dL (1.5-2.7); PHOSPHORUS 2.9 mg/dL (2.7-4.5)
[2018-04-27 05:24] LABS: ALB/GLOB RATIO 0.7; ALBUMIN 2.2 g/dL (3.5-5.0); CREATININE 1.5 mg/dL (0.5-0.9); POTASSIUM 3.4 mmol/L (3.5-5.1); TOTAL BILIRUBIN 0.64 mg/dL (0.20-1.00); TOTAL PROTEIN 5.4 g/dL (6.3-8.3)
[2018-04-27 05:37] LABS: CALCIUM 6.8 mg/dL (8.8-10.2)
[2018-04-27] MEDS: PROTONIX IV SCH ×2 (05:41→17:33)
[2018-04-27] MEDS ORDERED: CALCIUM GLUCONATE 1 GM in NS 50 ML IV ONE (06:01)
[2018-04-27] MEDS ORDERED: MAGNESIUM SULFATE 2 GM/S.W.I. 2 GM/50 ML IVPB IV ONE (06:06)
--- NOTE | 2018-04-27 08:16 | Diag Imaging Result Doc PS360 ---
CHEST-PORTABLE - 04/27/2018 INDICATION: respiratory failure COMPARISON: 04/26/2018 FINDINGS: Support lines and tubes are stable. Stable cardiomegaly and pulmonary vascular congestion. Stable mild pulmonary edema centrally. No pneumothorax or large pleural effusion. IMPRESSION: No change from prior. Electronically signed by Inderjit Villafana 04/27/2018 8:13 AM
[2018-04-27] MEDS: MAXIPIME 1 GM in NS 50 ML IV SCH ×2 (09:39→21:23)
[2018-04-27] MEDS: ZYVOX 600 MG/D5W 600 MG/300 ML IVPB IV SCH ×2 (09:39→21:23)
--- NOTE | 2018-04-27 10:58 | PROGRESS NOTE ---
DATE: 04/27/2018 SUBJECTIVE: This morning, Ms. Salomon continues to be intubated. The and the son were at the bedside at the time of the encounter. She is not able to give any interval history herself. Per the nursing staff, her night was uneventful. However, early this morning when she went on sedation vacation, she did have a few runs of ventricular tachycardia. The patient is said to have been having more liquid bowel movements. OBJECTIVE: Vital Signs: Blood pressure is currently 124/56, pulse is 76, respirations are 18, temperature is 96.9 degrees, patient is saturating 100% on the mechanical ventilator. General Examination: Ms. Salomon is a 71-year-old, morbidly obese, female with a BMI of 74.0. She is in bed. She is currently intubated. She seems to be synchronizing well with the ventilator. HEENT: Mucosa is pink and moist. Anicteric. Acyanotic. Neck: Supple. There is some ulceration around the neck secondary to obesity. Chest: Air entry is bilaterally reduced. There are some transmitted sounds from the ventilator. No crackles. Cardiovascular: Regular rate and rhythm. No murmurs, no rubs, no gallops. GI: Abdomen is soft. It is distended but nontender. Bowel sounds present. Some panniculitis around the right abdominal wall. 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 However, she is able to wiggle the toes with painful stimulation. She will grimace her face to painful stimulation. Both pupils are equal and reactive. There is a dense cataract in the left eye. Laboratory Data: WBC is 5.59, hemoglobin is 8.9, platelet count of 125,000. ABGs have been reviewed. Sodium is 139, potassium is 3.4, chloride is 102, bicarb is 21, creatinine is down to 1.5. Current Microbiology Data: Blood cultures have been negative. Urine culture is negative. Abdominal wall culture is showing Staphylococcus epidermidis. Influenza is negative. C. difficile on the was negative. Diagnostic Data: A chest x-ray this morning continues to show some volume loss in the left lower lobe. There are also some bilateral pulmonary infiltrates. We are still waiting for the official report. MEDICATIONS: Current medications have been reviewed. The patient is currently on vancomycin and Zosyn. She is also on tube feedings. INTAKES AND OUTPUTS: Urine output 725 in a 24 hour period. The patient also has 350 from the fecal output. The patient is currently positive balance of 3557. ASSESSMENT: 1. Status post cardiac arrest. Down time said to be around 10 minutes. Initial rhythm not clearly stated. It appears patient was in pulseless electrical activity. 2. Recurrent nonsustained ventricular tachycardia. We will continue to replace all the electrolytes abnormalities. 3. Acute hypoxemic respiratory failure. Patient continues to be intubated. Pulmonary medicine is on board. 4. Aspiration pneumonia. We will continue with the antibiotic coverage. 5. Global encephalopathy on presentation. 6. Congestive heart failure with ejection fraction of 25% to 30%. Imaging suggestive of stress cardiomyopathy (takotsubo). 7. Nonoliguric acute kidney injury. Renal function seems to be trending down. Lasix has been withheld. The patient is getting adequate hydration through the tube feedings. She is currently in positive balance. PLAN: In general, I think Ms. Salomon is still critical but stable. Seems to be showing signs of preserved brainstem activity and probably some cortical activity, which is reassuring. We will continue the current ICU management including the ventilator support, antibiotics, nutritional support. We will culture the stool and do a repeat a C. difficile to rule out any infection, and continue observing her here in the ICU. cc: Narendra Hilliard MD
[2018-04-27] MEDS: POTASSIUM CHLORIDE 20% LIQUID PO SCH ×2 (12:06→17:34)
[2018-04-27] MEDS: LOVENOX SUBQ SCH (12:06)
[2018-04-27] MEDS: HUMULIN R SUBQ SCH ×3 (12:06→21:25)
--- NOTE | 2018-04-27 15:35 | PULMONOLOGY PROGRESS NOTE ---
DATE: 04/27/2018 INTERIM HISTORY: Sedation vacation was performed this morning. The patient squeezed the right hand but not the left hand. During the sedation vacation, patient started to have several episodes of nonsustained ventricular tachycardia at which point her sedation vacation was interrupted. OBJECTIVE: Vital Signs: The patient has been afebrile over the last 24 hours. Blood pressure 124/63, heart rate 77, respiratory rate 23, and oxygen saturation 100%. HEENT: The right pupil is reactive. The left pupil appears cloudy. Neck: Supple. Chest: Reveals clear air entry bilaterally. Cardiac: S1-S2. Abdomen: Obese and soft with positive bowel sounds. Extremities: Reveal increased adiposity. She does have apparent edema of both hands. LABORATORY DATA: White blood count 5.59, hemoglobin 8.9, platelet count 125, 000. Sodium 139, potassium 3.4, chloride 102, bicarbonate 21, BUN 11, creatinine 1.5. Chest x-ray reveals cardiomegaly with vascular congestion but no significant pneumonia or effusions. Microbiology reveals no new data. She has Staphylococcus epidermidis identified from her abdominal wound. Arterial blood gas with pH 7.39, pCO2 of 38, PO2 of 113. IMPRESSION: 1. A 62-year-old with morbid obesity and a BMI greater than 70, bedbound status for the last several years. 2. Takotsubo cardiomyopathy, pulmonary hypertension, status post cardiopulmonary arrest, possible stroke. The patient continues to have episodes of nonsustained ventricular tachycardia. RECOMMENDATIONS: 1. Continue ventilatory support. 2. Supplement magnesium and potassium. 3. Transition Jevity to Glucerna given elevation in blood sugars. 4. Ventricular tachycardia management per Cardiology. 5. Prognosis is guarded. 6. Consider follow-up CT scan of the brain tomorrow to re-evaluate left-sided weakness. Time spent in critical care management: 30+ minutes cc: Agus Toscano MD [facility]
[2018-04-27] MEDS: ASPIRIN PO SCH (16:20)
[2018-04-27] MEDS: SODIUM CHLORIDE 0.9% INJ SCH (17:34)
[2018-04-27] MEDS: COREG PO SCH (21:24)
[2018-04-28] MEDS: HUMULIN R SUBQ SCH ×6 (00:57→20:26)
[2018-04-28] MEDS: DIPRIVAN 1% 1,000 MG/100 ML BOTTLE IV SCH ×8 (00:58→20:36)
[2018-04-28] MEDS: DUONEB (A & A) INH SCH ×6 (03:20→23:15)
[2018-04-28 04:39] LABS: ALLEN TEST YES; BE -0.2 mmoll (-3.0-3.0); BLOOD TYPE ARTERIAL; HCO3-(ACT) 24.8 mmoll (20.0-26.0); METHB 1.5 % (0.0-1.5); O2(CT) 12.6 mL/dL (15.0-23.0); O2HB 96.3 % (95.0-99.0); PCO2(98.6) 36 mmHg (35-45); PO2(98.6) 138 mmHg (60-100); SAMPLE BLOOD; SAO2 99.7 % (95.0-100.0); SRATE 12 BPM; THB 9.1 g/dL (11.5-17.4); TVOL 700 mL; pH(98.6) 7.43 (7.35-7.45)
[2018-04-28 04:40] LABS: MODALITY VENTILATOR
[2018-04-28] MEDS: PROTONIX IV SCH ×2 (05:30→18:08)
--- NOTE | 2018-04-28 06:04 | Diag Imaging Result Doc PS360 ---
EXAM: CHEST-PORTABLE HISTORY: respiratory failure TECHNIQUE: Portable chest single view COMPARISON: 04/27/2018 FINDINGS: No change in the right-sided PICC line, the endotracheal tube, or the nasogastric tube. Vascular distention is similar to the prior study. The heart is borderline mildly prominent although this is a portable chest. No pleural effusions identified. IMPRESSION: No significant interval change. Electronically signed by Ramírez Mancilla 04/28/2018 6:02 AM
[2018-04-28 06:25] LABS: BASO# 0.03 X1000 (0.0-0.2); BASO% 0.6 % (0.0-0.8); EOS# 0.49 X1000 (0.0-0.7); EOS% 9.7 % (0.0-10.0); HEMATOCRIT 24.7 % (37.0-47.0); HEMOGLOBIN 7.9 g/dL (12.0-16.0); IMM GRAN# 0.06 X1000 (0.0-0.04); IMM GRAN% 1.2 % (0.0-0.5); LYMPH# 0.91 X1000 (1.2-3.4); LYMPH% 18.1 % (20.5-51.1); MCH 28.8 PG (27-31); MCV 90.1 FL (81-99); MONO# 0.47 X1000 (0.11-0.59); MONO% 9.3 % (1.7-9.3); NEUT# 3.08 X1000 (1.4-6.5); NEUT% 61.1 % (42.2-75.2); PLT 129 X1000 (130-400); RBC 2.74 XMIL (4.2-5.4); RDW 14.1 % (11.5-14.5); WBC 5.04 X1000 (4.8-10.8)
[2018-04-28 06:49] LABS: ALB/GLOB RATIO 0.6; ALBUMIN 1.9 g/dL (3.5-5.0); CALCIUM 7.5 mg/dL (8.8-10.2); CREATININE 1.8 mg/dL (0.5-0.9); MAGNESIUM 2.1 mg/dL (1.5-2.7); PHOSPHORUS 2.3 mg/dL (2.7-4.5); POTASSIUM 4.2 mmol/L (3.5-5.1); TOTAL BILIRUBIN 0.48 mg/dL (0.20-1.00); TOTAL PROTEIN 4.9 g/dL (6.3-8.3)
[2018-04-28] MEDS: MAXIPIME 1 GM in NS 50 ML IV SCH ×2 (08:43→20:35)
[2018-04-28] MEDS: ZYVOX 600 MG/D5W 600 MG/300 ML IVPB IV SCH ×2 (08:44→20:35)
[2018-04-28] MEDS: COREG PO SCH ×2 (08:44→20:35)
[2018-04-28] MEDS: ASPIRIN PO SCH (08:44)
[2018-04-28] MEDS ORDERED: ALBUMIN 25% IV ONE (09:50)
[2018-04-28] MEDS ORDERED: LASIX IV ONE (09:51)
--- NOTE | 2018-04-28 10:10 | PROGRESS NOTE ---
DATE: 04/28/2018 SUBJECTIVE: This morning, Ms. Salomon continues to be fairly stable. Per the nursing staff, the night was uneventful. She did not have any more nonsustained ventricular tachycardia. OBJECTIVE: Vital Signs: Blood pressure is 119/51, pulse is 75, respirations are 13, temperature is 97.6 degrees. General: Ms. Salomon is a 62-year-old, morbid, female. She is in bed, currently intubated and sedated on propofol. HEENT: Mucosa is pink and moist. Anicteric. Acyanotic. Neck: Supple. Respiratory: Good air entry bilaterally. Some transmitted sounds from the ventilator. Cardiovascular: Regular rate and rhythm. No murmurs, no rubs, no gallops. GI: Abdomen is soft, distended, but nontender. There is some panniculitis on the right lower abdominal wall. 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 She will grimace the face to painful stimulation. Per the nurse, whenever the patient is on sedation vacation, she would open her eyes, will be more awake and follows some basic commands, like squeezing the hands. The patient did not do these actions to me because she is currently on propofol. IMAGING AND LABORATORY DATA: WBC is 5.04, hemoglobin is 7.9, platelet count of 129,000. Chemistry is also reviewed. Creatinine is slightly up to 1.8. Rest of chemistry is unremarkable. A chest x-ray this morning continues to show borderline heart with prominent vascular congestion, but no significant interval change. CURRENT MEDICATIONS: Have all been reviewed. ASSESSMENT: 1. Status post cardiac arrest. Down time said to be around 10 minutes. This happened in our emergency room. Initial rhythm is not clearly stated. It appears, however, that the patient was in pulseless electrical activity. 2. Recurrent nonsustained ventricular tachycardia. Will replace all electrolytes. The patient has not had any more overnight. 3. Acute hypoxemic respiratory failure. The patient is currently intubated. Pulmonary Medicine is on board. She seems to be doing fairly okay. Will be waiting on Pulmonary for further recommendations as to when SBT and extubation will take place. 4. Aspiration pneumonia. Will continue with the current antibiotic coverage. 5. Global encephalopathy on presentation. Will re-evaluate this once the patient is off sedation. 6. Congestive heart failure with ejection fraction of 25% to 30%. Imaging is suggestive of stress cardiomyopathy (Takotsubo). The patient now seems to be retaining more fluid. Will give her Lasix with albumin. 7. Nonoliguric acute kidney injury. Creatinine has gotten slightly worse today. The patient was on vancomycin and Zosyn, which have been discontinued. Will continue to avoid any nephrotoxic drugs. Will also get Nephrology to see the patient. Urine studies as well as renal ultrasound have been ordered. 8. Fluid overload. The patient is currently positive fluid balance of 6342. We are going to give her 60 mg of intravenous Lasix with albumin today. 9. Nutritional support. The patient is getting tube feedings, and she seems to be tolerating this very well. In general, Ms. Salomon has been in the hospital for the past 3 days. She was initially transferred from [facility] for a CT scan of the head because of altered mental status, and I understand that after the procedure, she was in our emergency room when she vomited and became unresponsive and had to be intubated. Since then, she remains intubated here in the intensive care unit, and undergoing critical care management. We are going to continue with the current ventilator support and antibiotics. Will get Nephrology also to see her, and continue with the nutritional support. cc: Narendra Hilliard MD [facility]
[2018-04-28 11:18] LABS: UR CREAT RANDOM 124.3 mg/dL (11-20)
[2018-04-28] MEDS: LOVENOX SUBQ SCH (11:21)
--- NOTE | 2018-04-28 11:39 | EKG Report ---
Test Performed on : 04/26/2018 03:52:06 AM Test Reason : CCU. NO ORDER IN MT Blood Pressure : / mmHG Vent. Rate : 157 BPM Atrial Rate : 069 BPM P-R Int : 000 ms QRS Dur : 102 ms QT Int : 230 ms P-R-T Axes : 000 088 046 degrees QTc Int : 371 ms Ventricular tachycardia (ventricular or supraventricular with aberration) Low voltage QRS Acute pericarditis Nonspecific T wave abnormality Abnormal ECG When compared with ECG of 26-APR-2018 03:35, (Unconfirmed) Previous ECG has undetermined rhythm, needs review Questionable change in QRS duration Criteria for Anterior infarct are no longer present Confirmed by Gabriela BURNS, Hernandez Simmons ([id number]) on 04/28/2018 12:40:11 PM
--- NOTE | 2018-04-28 13:25 | PULMONOLOGY PROGRESS NOTE ---
DATE: 04/28/2018 SUBJECTIVE: The patient's sedation was weaned this morning. She did not have any new arrhythmias. She squeezed the right hand very tightly, but had very limited movement on the left side. The patient has been afebrile for the last 24 hours. OBJECTIVE: Vital Signs: Blood pressure 115/53, heart rate 70, respiratory rate 12, oxygen saturation 100%. Intake 3795, output 1010. HEENT: Right pupil is reactive. Left pupil is cloudy. Oropharynx appears clear. Neck: Supple. Chest: Reveals good air entry bilaterally with some crackles in the bases. Cardiac exam: S1-S2. Abdomen: Soft. Extremities: Reveal 2+ peripheral edema. LABORATORIES: Chest x-ray reveals cardiomegaly with mild vascular distention with no change. White blood count 5.04, hemoglobin 7.9, platelet count 129,000. Sodium 139, potassium 4.2, chloride 106, bicarbonate 21, BUN 14, creatinine 1.8, albumin 1.9. Arterial blood gas, pH 7.43, pCO2 of 36, pO2 of 138. IMPRESSION: A 62-year-old with: 1. Body mass index greater than 70. 2. Cardiopulmonary arrest. 3. Takotsubo cardiomyopathy. 4. Pulmonary hypertension. 5. Acute hypoxemic respiratory failure. 6. Recurrent episodes of nonsustained ventricular tachycardia. 7. Possible stroke. 8. The patient has had some swelling in the left hand and it could be that the left hand has been injured during the resuscitation effort or it is possible that she could have had a stroke. RECOMMENDATIONS: 1. Continue ventilatory support. 2. Attempt diuresis. Unfortunately, her creatinine continues to climb despite being positive fluid balance for the last several days. 3. CT scan of the brain for reasons outlined above. 4. Continue tube feeds as tolerated. PROGNOSIS: Guarded. TIME SPENT: Critical care 30+ minutes. cc: Agus Toscano MD
--- NOTE | 2018-04-28 14:07 | NEPHROLOGY CONSULTATION ---
DATE: 04/28/2018 REASON FOR ADMISSION: Altered mental status, transfer from [facility]. CONSULTING PHYSICIAN: [id number] kidney disease. CONSULTING PHYSICIAN: Sea Philip MD HISTORY OF PRESENT ILLNESS: This is a 62-year-old female who presented to our facility as a ER to ER transfer from [facility] secondary to requiring imaging that could not be obtained at that hospital. The patient in the emergency room apparently had an episode of aspiration, followed by cardiopulmonary arrest, PEA with ACLS protocol and ROSC. The patient was intubated, admitted up to the intensive care unit for further treatment. During this time , her creatinine on arrival was 1.1. It has slowly risen with some fluctuation up and down and today is at 1.8. This is the highest it has been during this hospitalization. She has had some episodes of hypokalemia as well as hypocalcemia. During the hospitalization, she has been unable to be successfully extubated as she went into ventricular tachycardia yesterday during the attempt. She is currently on sedation vacation at this time and really does not have any movement noted to this practitioner during examination, other than some movement to her left foot with tactile stimuli. There is no family at the bedside, and information is obtained from the chart. The patient here in the hospital has had some leukocytosis with elevated white counts. There was some concern that the patient may have had a stroke as her response has been significantly reduced. PAST MEDICAL HISTORY: Congestive heart failure. Hypertension. Hyperlipidemia. Diabetes type 2. GERD. CKD. Hypothyroidism. Recent diagnosis of sarcoidosis. History of uterine cancer. Iron- deficiency anemia. Kidney stone. Question of diverticulitis and/or colitis. UTI. Asthma. COPD. Cellulitis to the right abdomen. SURGICAL HISTORY: Hysterectomy. section. Cholecystectomy. Cataract surgery. Lung biopsy. IVC filter placement in preparation for bariatric surgery that the patient ultimately did not undergo. ALLERGIES: Listed as cephalexin and pregabalin. CURRENT MEDICATIONS: Tylenol, DuoNeb,aspirin, Coreg, Cefepime, Lovenox, Humulin , Zyvox, Norepinephrine, Protonix, Diprivan. The patient has also received albumin and Lasix over the last 24 hours. FAMILY HISTORY: Noncontributory. SOCIAL HISTORY: No ETOH, tobacco or illicit drug use. The patient is bedridden secondary to her morbid obesity and has home health that comes and sees her. Apparently, she does not go to doctors offices for routine visits. REVIEW OF SYSTEMS: See pertinent positives noted above in history of present illness. PHYSICAL EXAMINATION: Vital Signs: Temperature 97.7 degrees, pulse 100, respiratory rate 18, blood pressure 129/46. General: This is a middle-aged female, currently intubated and mechanically ventilated. It appears that her sedation is off at this time. She is really nonresponsive. HEENT: Normocephalic, atraumatic. She is orally intubated. Her pupils are reactive to light when I manually lift her eyelids. Neck: Thick, supple. Unable to determine JVD. Cardiovascular: Distant heart sounds secondary to body habitus. No murmur appreciated. She has occasional tachycardic rate. Pulmonary: Remains mechanically ventilated. Decreased breath sounds particularly to the bases posteriorly. Abdomen: Obese, soft, protuberant. Hypoactive bowel sounds. : Hernandez catheter. Small amount of urine noted. Extremities: She did move her left foot briefly with palpation of edema. Her edema appears more dependent. Her left upper extremity does have some swelling noted. Integumentary: Skin is pale, warm, and dry. Neurologic: Again, response significantly decreased. INPUT AND OUTPUT: Intake 1 L, output 330 mL. LABORATORY DATA: WBC of 5, hemoglobin 7.9. Sodium 139, potassium 4.2, CO2 21, BUN 14, creatinine 1.8 (1.5, 1.7, 1.2, 1.1), albumin 1.9. IMAGING: She did have a chest x-ray this morning that showed no interval change. Patient does have a PICC line, an ET tube and NG tube. No pleural effusions were identified. ASSESSMENT AND PLAN: [id number] kidney disease in the setting of patient with recent cardiac arrest and KOBE. Her urine output is marginal. We will continue to monitor her closely. She does not have any absolute indication for intervention at this time. It is noted that her cumulative input and output if correct are about 6 L positive all total. It does not appear that she is having any issues with respirations or ventilation. The patient has a renal ultrasound ordered and urine studies ordered today. Her medications have been reviewed and there are no changes that need to be made at this time. Thank you for allowing us to assist with Ms. Briana [place]. Dictated by JOEY Araya for Abel Marcial MD Face to face encounter, data reviewed, discussed with Lina Augustin on 04/28/18. I agree with the above assessment and plan of care. cc: Abel Marcial MD [facility]
--- NOTE | 2018-04-28 14:10 | CARDIOLOGY PROGRESS NOTE ---
DATE: 04/28/2018 SUBJECTIVE: Ms. Salomon is on sedation on the ventilator. She had a sedation holiday today with improvement. She was following commands, but it seemed like only on the right side. She is currently on sedation and on the ventilator. OBJECTIVE: Vitals: She is afebrile. Heart rate 60s to 70s. Blood pressure 121/49. Generally: She is in no acute distress, on ventilator and sedation. Cardiovascular: She sounds to be in a regular rate and rhythm with very distant heart sounds. Warm and well perfused extremities. Chest: Mechanical breath sounds heard throughout. Again, very distant breath sounds. She has warm and well-perfused extremities. Abdomen: Soft, nontender. No obvious organomegaly, but significantly limited exam. DATA: White count is 5, hematocrit 24, platelet count 129,000. Hematocrit, white count and platelets have all seemed to decrease gradually over the last several days. Sodium 139, potassium 4.2, BUN 14, creatinine is 1.8. ASSESSMENT: Ms. Saolmon is a 62-year-old female who came in originally with altered mental status. Suffered a pulseless electrical activity arrest. More recently, they are concern for possible cerebrovascular accident . She has also had nonsustained ventricular tachycardia. Her echocardiogram is suggestive of a takotsubo cardiomyopathy. PLAN: From a cardiovascular standpoint, I agree with continuation of Coreg. Her electrolytes have been repleted. There is a concern for takotsubo CMP. She has been initiated on Coreg. We will follow up on the results of the CT. Unfortunately, regarding her reduced ejection fraction, she is not a candidate for any sort of invasive procedures like a cardiac cath. She was given 60 of IV Lasix this morning. cc: Bo Rose MD [facility]
--- NOTE | 2018-04-28 14:14 | Diag Imaging Result Doc PS360 ---
EXAM: CT HEAD W/O CONTRAST INDICATION: arrest, left sided weakness TECHNIQUE: This exam was performed using automated exposure control, adjustment of mA or kV according to patient size, and/or use of iterative reconstruction technique. COMPARISON: 04/25/2018 FINDINGS: There is stable right parietal and right occipital encephalomalacia. There is stable brain atrophy. There is a stable chronic lacunar infarct involving the nitin. There is no definite acute infarct given the limited sensitivity of CT versus MRI. There is no discrete intracranial mass, mass effect, or intracranial hemorrhage. The surrounding soft tissues and bony structures are essentially unremarkable. IMPRESSION: Stable chronic appearing changes as described. No evidence of acute intracranial pathology. Electronically signed by Raul Naylor 04/28/2018 2:12 PM
--- NOTE | 2018-04-28 16:35 | Diag Imaging Result Doc PS360 ---
EXAM: US RENAL 2 (RETROPER) COMPLETE INDICATION: chago/arf TECHNIQUE: COMPARISON: None. FINDINGS: Note that the patient was intubated. Due to the patient's condition, inability to be positioned, body habitus, and bandaging over the abdomen, neither the right nor the left kidney could not be visualized rendering this study nondiagnostic. There is a Hernandez catheter in the urinary bladder and the bladder is not visualized. IMPRESSION: Nondiagnostic study for the reasons discussed above. Electronically signed by Raul Naylor 04/28/2018 4:32 PM
[2018-04-28] MEDS: SODIUM CHLORIDE 0.9% INJ SCH (18:08)
[2018-04-29] MEDS: HUMULIN R SUBQ SCH ×6 (00:43→23:10)
[2018-04-29] MEDS: DIPRIVAN 1% 1,000 MG/100 ML BOTTLE IV SCH ×8 (00:45→20:10)
[2018-04-29] MEDS: DUONEB (A & A) INH SCH ×6 (03:20→23:58)
[2018-04-29 04:52] LABS: ALLEN TEST YES; BE -1.7 mmoll (-3.0-3.0); BLOOD TYPE ARTERIAL; HCO3-(ACT) 23.6 mmoll (20.0-26.0); METHB 1.2 % (0.0-1.5); O2(CT) 11.7 mL/dL (15.0-23.0); O2HB 96.6 % (95.0-99.0); PCO2(98.6) 42 mmHg (35-45); PO2(98.6) 129 mmHg (60-100); SAMPLE BLOOD; SAO2 99.6 % (95.0-100.0); SRATE 12 BPM; THB 8.4 g/dL (11.5-17.4); TVOL 700 mL; pH(98.6) 7.36 (7.35-7.45)
[2018-04-29 04:53] LABS: MODALITY VENTILATOR
[2018-04-29 06:21] LABS: BASO# 0.03 X1000 (0.0-0.2); BASO% 0.6 % (0.0-0.8); EOS# 0.38 X1000 (0.0-0.7); EOS% 8.2 % (0.0-10.0); HEMATOCRIT 25.8 % (37.0-47.0); IMM GRAN# 0.06 X1000 (0.0-0.04); IMM GRAN% 1.3 % (0.0-0.5); LYMPH# 1.13 X1000 (1.2-3.4); LYMPH% 24.2 % (20.5-51.1); MCH 28.5 PG (27-31); MCV 91.8 FL (81-99); MONO# 0.56 X1000 (0.11-0.59); MPV 12.2 FL (7.4-10.4); NEUT% 53.7 % (42.2-75.2); PLT 127 X1000 (130-400); RBC 2.81 XMIL (4.2-5.4); RDW 14.6 % (11.5-14.5); WBC 4.66 X1000 (4.8-10.8)
[2018-04-29] MEDS: PROTONIX IV SCH ×2 (06:34→17:31)
[2018-04-29 06:47] LABS: ALB/GLOB RATIO 0.9; ALBUMIN 2.7 g/dL (3.5-5.0); CALCIUM 7.4 mg/dL (8.8-10.2); CREATININE 1.9 mg/dL (0.5-0.9); POTASSIUM 4.2 mmol/L (3.5-5.1); TOTAL BILIRUBIN 0.58 mg/dL (0.20-1.00); TOTAL PROTEIN 5.7 g/dL (6.3-8.3)
--- NOTE | 2018-04-29 08:04 | Diag Imaging Result Doc PS360 ---
CHEST-PORTABLE - 04/29/2018 INDICATION: respiratory failure COMPARISON: 04/28/2018 FINDINGS: Support lines and tubes are stable. Stable cardiomegaly and pulmonary vascular congestion. Stable bilateral infiltrates/pulmonary edema. No large pleural effusion. IMPRESSION: No change from prior. Electronically signed by Inderjit Villafana 04/29/2018 8:02 AM
[2018-04-29] MEDS: MAXIPIME 1 GM in NS 50 ML IV SCH ×2 (08:30→23:10)
[2018-04-29] MEDS: ASPIRIN PO SCH (08:30)
[2018-04-29] MEDS: LASIX IV SCH ×2 (08:30→16:26)
[2018-04-29] MEDS: ZYVOX 600 MG/D5W 600 MG/300 ML IVPB IV SCH ×2 (08:30→20:10)
[2018-04-29] MEDS: COREG PO SCH ×2 (09:39→23:10)
--- NOTE | 2018-04-29 10:04 | PROGRESS NOTE ---
DATE: 04/29/2018 SUBJECTIVE: Ms. Salomon is on the ventilator lying on her back. Her left arm has been a little more swollen. We are going to get a Doppler on left arm. OBJECTIVE: Vitals: She remains afebrile. Pulse 78, respirations 16, blood pressure 120/56. URINE OUTPUT: 1700 mL. IMAGING: A chest x-ray on 04/29, no change from prior. ASSESSMENT AND PLAN: 1. A 62-year-old who originally came in for altered mental status, but she suffered pulseless electrical activity arrest and there was recently concern for cerebral vascular accident. She has also had nonsustained ventricular tachycardia. Echocardiogram suggestive of takotsubo cardiomyopathy. The patient is on Coreg. 2. Respiratory failure, on the ventilator. 3. Acute on chronic kidney disease in a patient having a cardiac arrest. Her urine output is marginal, so Dr. Marcial is following. 4. Body mass index greater than 70, status post cardiopulmonary arrest, Takotsubo cardiomyopathy, pulmonary hypertension, acute hypoxemic respiratory failure, recurrent episodes of nonsustained ventricular tachycardia, possible CVA. 5. She has several ulcers on the sacrum and her thigh. Continue topical care. cc: Yasmani Harmon MD
[2018-04-29] MEDS: LOVENOX SUBQ SCH (11:19)
--- NOTE | 2018-04-29 14:56 | NEPHROLOGY PROGRESS NOTE ---
DATE: 04/29/2018 SUBJECTIVE: Patient remains mechanically ventilated. CT scan of her head was negative. OBJECTIVE: Vital Signs: Temperature 97.3, pulse 79, respiratory rate 20, blood pressure 127/52. Intake 3.3 L. Output 1.9 L. PHYSICAL EXAMINATION: General: This is an acutely ill-appearing female resting in bed. She is currently sedated, mechanically ventilated. HEENT: Normocephalic, atraumatic. Orally intubated. Neck: Thick. Unable to determine JVD. Cardiovascular: No murmur appreciated. Distant heart sounds. Pulmonary: Mechanically ventilated. Decreased breath sounds. Abdomen : Obese, soft. Positive bowel sounds. Genitourinary: Hernandez catheter. Small amount of dark urine. Extremities: Dependent up to the thighs. Integumentary: Skin is pale, warm and dry. LAB DATA: WBC of 4.6, hemoglobin 8.0. Sodium 133, potassium 4.2, CO2 21, creatinine 1.9. ASSESSMENT AND PLAN: 1. Acute on chronic kidney disease in the setting of recent cardiac arrest. Urine output remains marginal. Renal function, creatinine has continued to climb slowly but she has not met parameters to initiate dialysis. If her fluid volumes become problematic with respiratory status, we will initiate treatment. Otherwise, will follow labs closely and would initiate at that point. 2. Fluid volume. We will order furosemide 100 mg q.8 hours overnight and see if we can stimulate some urine output and thus avoid dialysis from that standpoint. Dictated by JOEY Araya for Abel Marcial MD Face to face encounter, data reviewed, discussed with Lina Augustin on 04/29/18. I agree with the above assessment and plan of care. cc: Abel Marcial MD [facility] CENTERRadha
--- NOTE | 2018-04-29 17:44 | Extremity Venous Study ---
PROCEDURE NAME: Venous U/S Left Arm - 04/29/2018 LEFT UPPER EXTREMITY VENOUS ULTRASOUND: REFERRING PHYSICIAN: Dr. Harmon. READING PHYSICIAN: Dr. Lezama. GERIATRICIAN: Carlos. INDICATION: Left arm swelling. FINDINGS: The patient was noted to be morbidly obese, which rendered the exam quite limited. The left internal jugular vein, subclavian vein, axillary vein, brachial vein and cephalic vein were imaged and appeared to be compressible, patent and without thrombus. INTERPRETATION: No obvious DVT or SVT of the left upper extremity. cc: MD Yasmani Wilson MD
[2018-04-29] MEDS ORDERED: ZOFRAN IV PRN (18:33)
--- NOTE | 2018-04-29 20:37 | PULMONOLOGY PROGRESS NOTE ---
DATE: 04/29/2018 SUBJECTIVE: The patient is arousable. She remains on mechanical ventilation. Intake 3332 mL, output 1190 mL. OBJECTIVE: Blood pressure 125/56, heart rate 82, respiratory rate 21, oxygen saturation 100%. HEENT: Right pupil is equal and reactive. Left pupil is cloudy. Oropharynx appears clear. Neck: Is supple. Chest: Reveals coarse rhonchi bilaterally. Cardiac: S1-S2. Abdomen: Obese and soft. Extremities: Reveal 2+ peripheral edema. LABORATORIES: Sodium 133, potassium 4.2, chloride 99, bicarbonate 21, BUN 18, creatinine 1.2, glucose 148. White blood count 4.66, hemoglobin 8.0, platelet count 127,000. Arterial blood gas pH 7.36, pCO2 of 42, PO2 of 129. Chest x-ray reveals cardiomegaly with bilateral pulmonary edema. IMPRESSION: 62-year-old with 1. Cardiopulmonary arrest. 2. Takotsubo cardiomyopathy with an ejection fraction of 20%. 3. Pulmonary hypertension. 4. Acute hypoxemic respiratory failure. 5. Recurrent nonsustained ventricular tachycardia. 6. Asymmetry of hand weakness. 7. Body mass index greater than 70. 8. Acute renal insufficiency. 9. Continued fluid retention. PLAN: 1. Continue ventilatory support. 2. Agree with plans for Lasix as outlined by Nephrology. Unfortunately, she continues to be in positive fluid balance. 3. Continue tube feeds as tolerated. 4. Ongoing end of life discussions with the family. Given patient's body habitus, pulmonary hypertension, cardiac dysfunction, and cardiac arrest, her prognosis is guarded to poor. TIME SPENT CRITICAL CARE: 30+ minutes. cc: Agus Toscano MD
[2018-04-29] MEDS: MORPHINE IV PRN ×2 (22:20→23:22)
[2018-04-29] MEDS: ATIVAN IV PRN ×2 (22:20→23:50)
[2018-04-30] MEDS: HUMULIN R SUBQ SCH ×2 (00:52→04:54)
[2018-04-30] MEDS: LASIX IV SCH (00:52)
[2018-04-30] MEDS: MORPHINE IV PRN ×5 (00:58→22:59)
[2018-04-30] MEDS: ATIVAN IV PRN ×2 (00:58→02:46)
[2018-04-30] MEDS: ATROPINE 1 % OPHTH SOLN SL PRN ×2 (02:51→06:33)
[2018-04-30] MEDS: DUONEB (A & A) INH SCH ×5 (05:03→23:17)
[2018-04-30] MEDS: PROTONIX IV SCH (06:06)
[2018-04-30 06:34] LABS: BASO# 0.12 X1000 (0.0-0.2); BASO% 1.1 % (0.0-0.8); EOS# 0.78 X1000 (0.0-0.7); EOS% 7.2 % (0.0-10.0); HEMATOCRIT 27.2 % (37.0-47.0); HEMOGLOBIN 8.1 g/dL (12.0-16.0); IMM GRAN# 0.41 X1000 (0.0-0.04); IMM GRAN% 3.8 % (0.0-0.5); LYMPH# 2.61 X1000 (1.2-3.4); LYMPH% 24.2 % (20.5-51.1); MCH 28.4 PG (27-31); MCHC 29.8 g/dL (33-37); MCV 95.4 FL (81-99); MONO# 2.08 X1000 (0.11-0.59); MONO% 19.3 % (1.7-9.3); MPV 12.3 FL (7.4-10.4); NEUT# 4.79 X1000 (1.4-6.5); NEUT% 44.4 % (42.2-75.2); PLT 168 X1000 (130-400); RBC 2.85 XMIL (4.2-5.4); WBC 10.79 X1000 (4.8-10.8)
[2018-04-30 07:00] LABS: ALB/GLOB RATIO 0.7; ALBUMIN 2.5 g/dL (3.5-5.0); CALCIUM 7.8 mg/dL (8.8-10.2); CREATININE 2.1 mg/dL (0.5-0.9); POTASSIUM 4.6 mmol/L (3.5-5.1); TOTAL BILIRUBIN 0.47 mg/dL (0.20-1.00); TOTAL PROTEIN 5.9 g/dL (6.3-8.3)
--- NOTE | 2018-04-30 07:14 | Diag Imaging Result Doc PS360 ---
EXAM: CHEST-PORTABLE 04/30/2018 HISTORY: respiratory failure TECHNIQUE: AP portable at 0544 COMMENT: There is cardiomegaly. There is retrocardiac opacity and increased pulmonary vascularity. There is interstitial pulmonary edema. There is platelike atelectasis in the left upper lobe. Compared to 04/29/2018 there has been no appreciable change. The left lower lobe is more opacified than on 04/28/2018. IMPRESSION: Pulmonary edema with left lower lobe atelectasis versus pneumonia. Electronically signed by Suresh Larkin 04/30/2018 7:12 AM
--- NOTE | 2018-04-30 08:38 | PROGRESS NOTE ---
DATE: 04/30/2018 SUBJECTIVE: Ms. Briana Salomon is a 62-year-old female who was admitted on 04/25/2018 and did suffer a cardiopulmonary arrest. She has been in ICU on mechanical ventilation. Dr. Harmon has spoken with the patient according to the patient's medical record notes earlier in the day about withdrawing care and comfort measures only. It was noted that the comfort measures protocol was explained in detail to the family. The family verbalized understanding and did ask to proceed. I was notified at 2130 that the family was requesting the patient to be extubated. I did go to the bedside and speak with the patient's as well as her children and extended family. Her spouse did request that she be extubated. He did want to continue with comfort measures only and to keep her as comfortable as possible. The patient is a DNR Level One. I did explain the procedures and answered his as well as other family member questions. Dr. Goldsmith was also made aware of the patient's condition and the family's request. An extubation order as well as comfort measures only order were placed in the computer. This conducts the Critical Care Progress Note for Briana Salomon. Dictated by JOEY Whelan for Ajit Goldsmith MD cc: MD Yasmani Coon MD
--- NOTE | 2018-04-30 09:13 | PROGRESS NOTE ---
DATE: 04/30/2018 SUBJECTIVE: Ms. Salomon is extubated. She has agonal breathing. She is not responding. OBJECTIVE: Temp 98.2 degrees, pulse 100, respirations 13, blood pressure 84/44. Pupils are equal and round. Lungs with diminished breath sounds anterolaterally. Cardiovascular: Regular rhythm and rate without murmur or S3. Abdomen: Soft. Skin: Warm and dry. Blood sugars 154, 163, and 166. PLAN: We will let her transfer to the floor. She is on comfort measures. Continue present medications. cc: Yasmani Harmon MD
[2018-04-30 10:03] LABS: EOS 6 % (1-10); LYMPHS 12 % (21-51); SEGS 56 % (42-75)
[2018-04-30 10:04] LABS: ATYPICAL LYMPH 2 %; MONO 20 % (1-9)
--- NOTE | 2018-04-30 10:43 | PULMONOLOGY PROGRESS NOTE ---
DATE: 04/30/2018 SUBJECTIVE: After discussion with the primary care physician, the patient's family has elected to withdraw measures and initiate comfort measures only. The patient has been extubated. OBJECTIVE: General: The patient is poorly responsive. She has moderate work of breathing. Vital Signs: Blood pressure 83/44, respiratory rate 13, oxygen saturation 99% on a nonrebreather. HEENT: Pupils are equal and reactive. Oropharynx appears clear. Neck: Supple. Chest: Reveals coarse rhonchi bilaterally with shallow breath sounds. Cardiac Examination: S1 and S2 with distant heart sounds. Abdomen: Obese and soft. Extremities: Reveal extensive adiposity with edema. IMPRESSION: 1. A 62-year-old with cardiopulmonary arrest. 2. Takotsubo cardiomyopathy. 3. Pulmonary hypertension. 4. Acute hypoxemic respiratory failure. 5. Recurrent nonsustained ventricular tachycardia. 6. Asymmetry in upper extremity strength. 7. Body mass index of 70. 8. Acute renal insufficiency. 9. Ongoing fluid retention. 10. Family has elected extubation. PLAN: 1. Agree with palliative care measures. 2. Anticipate transfer to the floor. 3. Family was comforted. All questions were answered. cc: Agus Toscano MD
--- NOTE | 2018-04-30 21:37 | NEPHROLOGY PROGRESS NOTE ---
DATE: 04/30/2018 SUBJECTIVE: She has been extubated and but is unresponsive. No interaction at all. Closed face mask. OBJECTIVE: Exam performed at approximately 0700.Vital signs: Blood pressure 85/50, heart rate 99, respirations 12. General: Obese, unresponsive. Skin: Warm and dry. Pale. HEENT: Pupils are equal. Neck: Neck veins are not visible. Cardiovascular: Heart is regular, distant. Lungs: Equal, distant, rhonchi. Abdomen: Obese, soft, nontender. Extremities: Have 2+ edema. IMPRESSION: Acute kidney injury following cardiac arrest. Her urine output is actually improving, and her creatinine today is 2.1 so minimal change from yesterday. My understanding is that decisions are being made to withdraw care. As such, we will sign off, but if we can be of further assistance, please do not hesitate to call. cc: Abel Marcial MD
[2018-05-01] MEDS: MORPHINE IV PRN ×7 (01:04→18:10)
[2018-05-01] MEDS: ATROPINE 1 % OPHTH SOLN SL PRN ×3 (01:04→17:06)
[2018-05-01] MEDS: DUONEB (A & A) INH SCH ×5 (03:22→20:20)
[2018-05-01] MEDS: ATIVAN IV PRN ×3 (08:52→17:05)
--- NOTE | 2018-05-01 13:56 | PROGRESS NOTE ---
DATE: 05/01/2018 SUBJECTIVE: Ms. Salomon has had agonal respirations. Upper airway pooling. OBJECTIVE: Vital signs: She remains afebrile. Temperature 97.4 degrees, pulse 84, respirations 10, blood pressure 102/50. Eyes: Pupils are equal and round. Lungs: Clear in all lung young. Cardiovascular: Regular rate without murmur or S3. Abdomen: Soft. Skin: Warm and dry. ASSESSMENT AND PLAN: 1. Acute kidney injury following cardiac arrest. She is under comfort care. 2. She has had takotsubo cardiomyopathy. 3. Pulmonary hypertension. 4. Acute hypoxemic respiratory failure. 5. Recurrent nonsustained ventricular tachycardia. 6. Asymmetric upper extremity strength. 7. Acute renal insufficiency and continue comfort care. 8. I do not think she is going to survive long. Respiratory rales and shallow respirations. cc: Yasmani Harmon MD
[2018-05-02] MEDS: ATIVAN IV PRN ×8 (00:07→22:26)
[2018-05-02] MEDS: MORPHINE IV PRN ×8 (00:07→22:27)
[2018-05-02] MEDS: DUONEB (A & A) INH SCH ×7 (00:35→23:45)
[2018-05-02] MEDS: ATROPINE 1 % OPHTH SOLN SL PRN ×7 (08:00→23:26)
--- NOTE | 2018-05-02 16:33 | PROGRESS NOTE ---
DATE: 05/02/2018 SUBJECTIVE: Ms. Salomon is agonal respirations, and she has not responded, is very lethargic. Family is at the bedside. OBJECTIVE: Vital Signs: She remains afebrile. Pulse 80, respirations about 8, blood pressure 110/50. HEENT and Neck: Pupils are equal. No distended neck veins. Lungs: With scattered rhonchi throughout. Shallow respirations. Abdomen: Does not appear tender. ASSESSMENT AND PLAN: 1. End-stage morbid obesity hypoventilation syndrome. 2. Respiratory failure. 3. Acute kidney failure as well. 4. Family wants to continue comfort measures. I do not see any change. cc: Yasmani Harmon MD
[2018-05-03] MEDS: ATROPINE 1 % OPHTH SOLN SL PRN ×5 (00:59→21:21)
[2018-05-03] MEDS: MORPHINE IV PRN ×9 (00:59→23:24)
[2018-05-03] MEDS: ATIVAN IV PRN ×4 (00:59→06:16)
[2018-05-03] MEDS: DUONEB (A & A) INH SCH ×6 (03:52→23:10)
--- NOTE | 2018-05-03 11:38 | PROGRESS NOTE ---
DATE: 05/03/2018 SUBJECTIVE: Ms. Salomon' breathing is much more agonal, and longer periods of apnea. She appears comfortable. Family is at the bedside. OBJECTIVE: Afebrile. Pulse 80, respirations 16, and blood pressure 77/44. Lungs anterior lateral are clear. Shallow respirations. Cardiovascular exam with regular rhythm and rate. ASSESSMENT AND PLAN: Agonal respirations. Hypoventilation syndrome. She has acute tubular necrosis with renal failure and respiratory failure. Continue comfort measures. Prognosis is very poor. I think I expect her to in the next 24 hours. Continue comfort measures with Ativan and morphine. cc: Yasmani Harmon MD
[2018-05-04] MEDS: MORPHINE IV PRN ×12 (00:29→16:40)
[2018-05-04] MEDS: ATROPINE 1 % OPHTH SOLN SL PRN ×4 (03:26→13:03)
[2018-05-04] MEDS: DUONEB (A & A) INH SCH ×4 (03:47→15:38)
[2018-05-04] MEDS: ATIVAN IV PRN ×7 (08:07→16:40)
--- NOTE | 2018-05-04 13:23 | PROGRESS NOTE ---
DATE: 05/04/2018 Ms. Salomon still with very agonal respirations. Long periods of apnea. She remains afebrile. Appears comfortable, although the family would like me to increase her dose of morphine, which I think we can do. We will continue to give it every hour as needed. Continue comfort support. She has agonal respirations, hypoventilation. Admits to kidney failure and no p.o. intake. Inability to wake up and respond. cc: Yasmani Harmon MD
[2018-05-04 15:34] VITALS: BP 95/63
--- NOTE | 2018-05-04 18:04 | DISCHARGE SUMMARY ---
ADMISSION DATE: 04/25/2018 DISCHARGE DATE: 05/04/2018 SUMMARY: DATE OF : 05/04/2018 at 5 o'clock p.m. PRIMARY CARE: JOEY Franklin, in [place]. HOSPITAL COURSE: Presented with altered mental status. A 62-year-old female presented to the emergency room, transferred from [facility]. From what the patient's daughter and were able to explain, recently discharged from [facility] in [place], [place], on 04/21/2018. State she was admitted for treatment of cellulitis of right abdomen. Recent medication reconciliation looks as though she was discharged with antibiotics of clindamycin. Daughter states that the day before admission, the morning of 09/2018, the patient was noted to have normal mentation, though she did began to have increasing confusion through the day, difficulty with speech articulating words and some right-sided weakness, drawing up of her right hand throughout the day, though they stated the patient did not complain of shortness of breath. They did state that at times it looked as if she was having difficulty breathing. This was her chief complaint documented in the ER at [facility], though they did report that she complained of symptoms of headache and nausea. She did have a brief period where she stated she did have some chest pain, though from what we understood, this resolved on arrival to the emergency room at [facility]. Reported that she had been having frequent diarrhea. Denied any abdominal pain. Reported she had had some lower back pain. Denied having known fever, body aches, or chills. Denied having any known cough. There was no known vomiting prior to arrival to the ER. She did have chronic swelling bilateral lower extremities, and she takes Lasix p.r.n. for this. Daughter also noted she reported recently the patient's grandson was diagnosed with flu and she does have close contact with her grandson and they got a prescription for Tamiflu on 04/24/2018. In the emergency room at [facility], they did contact our physician in the ER to transfer patient. Due to the patient's weight, the CT scan of the head was unable to be performed in their facility, and she was transferred here for this to be completed. While in the emergency room, the patient's daughter states that the patient did begin to vomit, and they called for the nurse. There shortly after, the patient sat up in the bed to grab her chest and became unresponsive. They did call for nurses who checked the patient and found she was in cardiopulmonary arrest and immediately started chest compressions. ACLS protocol was initiated, given a total of 3 doses of epinephrine IV, and she was in PEA on the monitor. I think she did have return of regular complex, and she was intubated by the emergency department physician. Noted to have some leukocytosis. She has had a recent diagnosis of sarcoidosis by their report. PAST MEDICAL HISTORY: Once again, reviewed. 1. Congestive heart failure. 2. Hypertension. 3. Hyperlipidemia. 4. Diabetes mellitus, type 2. 5. Gastroesophageal reflux disease. 6. Chronic kidney disease. 7. Hypothyroidism. 8. Recent diagnosis of sarcoidosis. 9. History of uterine cancer. 10. Iron deficiency anemia. 11. Kidney stones. 12. Questionable history of colitis diverticulitis. 13. Frequent urinary tract infections. 14. Asthma. 15. COPD. 16. History of an IVC filter placement prior to having bariatric surgery, which the patient ultimately decided not to have. Filter was placed at [place], [place], many years ago. 17. Recent diagnosis of cellulitis of her right abdomen at [facility]. PAST SURGICAL HISTORY: 1. Hysterectomy. 2. section. 3. Cholecystectomy. 4. IVC filter placement. 5. Cataract surgery. 6. Lung biopsy. ADMISSION DIAGNOSES: 1. Cardiopulmonary arrest. Exact cause is uncertain. Initially she was moved to the unit, put on the ventilator. Suspected aspiration pneumonia and put on broad-spectrum antibiotics of vancomycin and Zosyn. Thought the encephalopathy and confusion probably were multifactorial, and then possible cerebrovascular accident was considered. The family wanted everything done at that point. Head Of Mathematics was consulted. and he felt in summary a 62-year -old with multiple medical problems, morbid obesity, altered mental status, acute hypoxemic respiratory failure, chronic hypercapnic respiratory failure, cor pulmonale, cellulitis, and altered mental status, status post cardiopulmonary arrest. She had an NG tube placed. Renal ultrasound was nondiagnostic and difficult to get ultrasound windows. CT of the head was done with stable chronic-appearing changes. She has a stable right parietal and right occipital encephalomalacia. There is stable brain atrophy and stable chronic lacunar infarct involving the nitin. No definite acute event appreciated. Nephrology was consulted, who felt she had acute tubular necrosis. She has acute on chronic kidney disease in the setting of patient recent cardiac arrest, and her urine output was marginal. Patient's situation continued to decline with no ability to extubate and renal function deteriorating. She was minimally responsive. Echo suggested Takotsubo's cardiomyopathy, so poor left ventricular function. She had a Body Mass Index greater than 70, and family wanted to make her comfort measures. Multi-system failure. Prognosis very poor. She was extubated and moved to the floor. She on 05/04/2018 at 1700. The family was at the bedside. cc: Yasmani Harmon MD MTDD
== END 2018-05-04 16:55 | disposition expired | DRG 296 ==
LOC: SUPCPDRO → ED 22:30 → ICU 04-25 03:15 → SUATTDRO 04-25 03:15 → 3N 04-30 15:35
PROVIDERS: ATTEND Emergency Medicine
CPT/HCPCS: 31500; 36569; 51702; 70450; 71010; 71045; 74000; 74018; 76770; 80048; 80053; 81001; 82270; 82550; 82553; 82570; 82805; 82948; 83605; 83690; 83735; 83880; 84100; 84300; 84439; 84443; 84484; 84540; 85025; 85610; 85730; 87040; 87070; 87077; 87088; 87186; 87205; 87275; 87276; 87324; 87449; 87804; 93005; 93010; 93306; 93880; 93971; 94002; 94003; 94640; 94761; 96365; 96366; 96368; 99285; A9270; C8929; C9113; J0171; J0330; J0610; J0692; J1650; J1940; J2020; J2060; J2270; J2543; J3370; J3475; J3480; J7030; J7040; J7050; P9047; Q9957; S0164; XXXXX